=== PATIENT | male | born 1950 | race Caucasian/White ===

== ENCOUNTER → 2016-05-07 | Emergency (ER) | payer OTHER ==
[~2016-05-07] VITALS: Ht 175.3 cm; Wt 94.2 kg
[~2016-05-07] MED LIST: ATOR40TA PO; CIAL20TA PO; CLOPIDOGREL 300 MG TAB (PLAVIX) As Ordered ONE; CLOPIDOGREL 300 MG TAB (PLAVIX) ONE; CLOPIDOGREL 300 MG TAB (PLAVIX) PO ONE; FERR325T PO; HEPARIN 25,000 UNITS/250 ML D5W BAG (100 UNITS/ML) ONE; HEPARIN DRIP 25,000 UNITS in APPROPRIATE DILUENT 1 EA IV SCH; HEPARIN SOD (PORCINE) 5000 UNITS/ML VIAL IV ONE; HEPARIN SOD (PORCINE) 5000 UNITS/ML VIAL ONE; LEVO75TA4 PO; METF500T PO; MORPHINE 2 MG/ML 1ML SYRINGE IV ONE; OMEP40CA2 PO; TENECTEPLASE 50 MG KIT (TNKase)(J3101) IV ONE; TENECTEPLASE 50 MG KIT (TNKase)(J3101) ONE
[2016-05-07 21:21] LABS: BASO # 0.1 K/mm3 (0.0-0.2); BASO % 0.4 % (0.0-1.0); EOS # 0.1 K/mm3 (0.0-0.50); EOS % 0.6 % (0.0-3.0); LARGE UNSTAINED CELL # 0.3 K/mm3 (0.0-0.4); LYMPH # 3.1 K/mm3 (1.5-4.5); LYMPH % 21.5 % (24.0-44.0); MEAN CORPUSCULAR HEMOGLOBIN 31.2 pg (27.0-33.0); MEAN CORPUSCULAR HGB CONC 34.1 g/dl (32.0-36.5); MEAN CORPUSCULAR VOLUME 91.6 fl (80.0-96.0); MONO % 7.8 % (0.0-5.0); NEUTROPHILS # 8.9 K/mm3 (1.8-7.7); NEUTROPHILS % 67.6 % (36.0-66.0); PLATELET COUNT, AUTOMATED 262 k/mm3 (150-450); RED CELL DISTRIBUTION WIDTH 14.2 % (11.5-14.5); WHITE BLOOD COUNT 13.2 K/mm3 (4.0-10.0)
[2016-05-07 21:52] VITALS: BP 153/102
[2016-05-07 21:59] LABS: ALBUMIN 3.5 GM/DL (3.2-5.2); ALBUMIN/GLOBULIN RATIO 1.13 (1.00-1.93); ALKALINE PHOSPHATASE 75 U/L (45-117); ALT/SGPT 40 U/L (12-78); ANION GAP 13 MEQ/L (8-16); AST/SGOT 20 U/L (15-37); BILIRUBIN,DIRECT 0.1 MG/DL (0.0-0.2); BILIRUBIN,TOTAL 0.5 MG/DL (0.2-1.0); BLOOD UREA NITROGEN 25 MG/DL (7-18); CARBON DIOXIDE LEVEL 23 MEQ/L (21-32); CHLORIDE LEVEL 107 MEQ/L (98-107); CREATININE FOR GFR 1.48 MG/DL (0.70-1.30); GLOMERULAR FILTRATION RATE 50.8 (>49); GLUCOSE, FASTING 147 MG/DL (80-110); POTASSIUM SERUM 3.9 MEQ/L (3.5-5.1); SODIUM LEVEL 143 MEQ/L (136-145); TOTAL PROTEIN 6.6 GM/DL (6.4-8.2)
--- NOTE | 2016-05-08 03:54 | REP ---
Clinical: Chest pain . Comparison: Report dated 12/18/2010 . Findings: The mediastinum and cardiac silhouette are stable and within normal limits for portable technique. The lung [place] are clear without acute consolidation, effusion, or pneumothorax. Skeletal structures are intact. Impression: Normal portable chest x-ray Signed by Angel Luis Garcia MD 05/08/2016 03:46 A
--- NOTE | 2016-05-08 20:24 | ECGEPIP ---
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
== END | disposition home or self-care (01) ==
LOC: EDUNIT# 20:35 → EDBD 21:03 → M ED 21:53
DX: I21.19 ST elevation (STEMI) myocardial infarction involving other coronary artery of inferior wall (principal); R00.1 Bradycardia, unspecified; R55 Syncope and collapse; I51.7 Cardiomegaly; I10 Essential (primary) hypertension; E78.5 Hyperlipidemia, unspecified; K21.9 Gastro-esophageal reflux disease without esophagitis; R73.03 Prediabetes; E03.9 Hypothyroidism, unspecified; Z79.899 Other long term (current) drug therapy; Z79.84 Long term (current) use of oral hypoglycemic drugs
CPT/HCPCS: 71010; 80048; 80076; 82550; 82553; 85025; 85730; 93005; 93041; 94760; 96374; 96375; 99285; J3101

== ENCOUNTER 2016-05-30 10:37 | Observation (INO) | payer OTHER ==
[~2016-05-30] VITALS: Ht 175.3 cm; Wt 87.3 kg
[~2016-05-30 10:37] MED LIST changes: -CLOPIDOGREL 300 MG TAB (PLAVIX) As Ordered ONE; -CLOPIDOGREL 300 MG TAB (PLAVIX) ONE; -CLOPIDOGREL 300 MG TAB (PLAVIX) PO ONE; -HEPARIN 25,000 UNITS/250 ML D5W BAG (100 UNITS/ML) ONE; -HEPARIN DRIP 25,000 UNITS in APPROPRIATE DILUENT 1 EA IV SCH; -HEPARIN SOD (PORCINE) 5000 UNITS/ML VIAL IV ONE; -HEPARIN SOD (PORCINE) 5000 UNITS/ML VIAL ONE; -MORPHINE 2 MG/ML 1ML SYRINGE IV ONE; -TENECTEPLASE 50 MG KIT (TNKase)(J3101) IV ONE; -TENECTEPLASE 50 MG KIT (TNKase)(J3101) ONE; +hydrALAZINE INJ 20 MG/ML VIAL IV SCH
[2016-05-30] MEDS ORDERED: CLOP75TA2 PO (10:50)
[2016-05-30] MEDS ORDERED: ASPI81TA85 PO (10:50)
[2016-05-30] MEDS ORDERED: METO12TA PO (10:50)
[2016-05-30] MEDS ORDERED: VITA500C24 PO (10:50)
[2016-05-30] MEDS ORDERED: NITR0.4S14 SL ×2 (10:50→14:57)
[2016-05-30] MEDS ORDERED: METOPROLOL TART 50 MG TAB PO ONE (11:45)
[2016-05-30] MEDS ORDERED: MECLIZINE 25 MG TABLET PO ONE (11:45)
[2016-05-30 11:49] LABS: BASO % 0.3 % (0.0-1.0); EOS # 0.1 K/mm3 (0.0-0.50); EOS % 0.7 % (0.0-3.0); LARGE UNSTAINED CELL # 0.2 K/mm3 (0.0-0.4); LARGE UNSTAINED CELL % 1.6 % (0.0-4.0); LYMPH % 16.8 % (24.0-44.0); MEAN CORPUSCULAR HEMOGLOBIN 30.6 pg (27.0-33.0); MEAN CORPUSCULAR HGB CONC 33.1 g/dl (32.0-36.5); MEAN CORPUSCULAR VOLUME 92.4 fl (80.0-96.0); MONO % 9.5 % (0.0-5.0); NEUTROPHILS # 7.8 K/mm3 (1.8-7.7); PLATELET COUNT, AUTOMATED 188 k/mm3 (150-450); RED CELL DISTRIBUTION WIDTH 14.2 % (11.5-14.5)
[2016-05-30] MEDS: METOPROLOL 5 MG/5 ML VIAL IV SCH ×2 (11:50→12:15)
[2016-05-30 12:01] LABS: ALBUMIN 3.9 GM/DL (3.2-5.2); ALBUMIN/GLOBULIN RATIO 1.08 (1.00-1.93); ALKALINE PHOSPHATASE 80 U/L (45-117); ALT/SGPT 49 U/L (12-78); ANION GAP 9 MEQ/L (8-16); AST/SGOT 28 U/L (15-37); BILIRUBIN,DIRECT < 0.1 MG/DL (0.0-0.2); BILIRUBIN,TOTAL 0.7 MG/DL (0.2-1.0); BLOOD UREA NITROGEN 22 MG/DL (7-18); CALCIUM LEVEL 9.5 MG/DL (8.8-10.2); CARBON DIOXIDE LEVEL 26 MEQ/L (21-32); CHLORIDE LEVEL 105 MEQ/L (98-107); CREATININE FOR GFR 1.38 MG/DL (0.70-1.30); FREE T4 0.94 NG/DL (0.76-1.46); GLOMERULAR FILTRATION RATE 55.1 (>49); GLUCOSE, FASTING 97 MG/DL (80-110); POTASSIUM SERUM 3.9 MEQ/L (3.5-5.1); SODIUM LEVEL 140 MEQ/L (136-145); TOTAL PROTEIN 7.5 GM/DL (6.4-8.2)
--- NOTE | 2016-05-30 12:06 | REP ---
Clinical: Chest pain . Comparison: 05/07/2016 . Findings: The mediastinum and cardiac silhouette are stable and within normal limits for portable technique. The lung calh[place] are clear without acute consolidation, effusion, or pneumothorax. Skeletal structures are intact. Impression: Normal portable chest x-ray Signed by Angel Luis Garcia MD 05/30/2016 11:57 A
--- NOTE | 2016-05-30 12:10 | REP ---
CT HEAD WITHOUT CONTRAST: HISTORY: Dizziness. Areas of decreased attenuation are present in the periventricular white matter. This represents small vessel ischemic disease. There is no intraparenchymal hemorrhage, mass or midline shift. The ventricular system and cortical sulci are dilated consistent with minimal volume loss. There is no extracerebral collection. The visualized sinuses are clear. IMPRESSION: 1. Small vessel ischemic disease. 2. Minimal volume loss. Signed by Vini Gonzales MD 05/30/2016 12:11 P
[2016-05-30] MEDS ORDERED: LISINOPRIL 10 MG TAB PO ONE (13:30)
[2016-05-30] MEDS ORDERED: OMEP20CA3 PO (14:57)
[2016-05-30] MEDS ORDERED: SYNT50TA PO (14:57)
[2016-05-30] MEDS ORDERED: REFR0.5D8 OU (14:58)
[2016-05-30] MEDS ORDERED: GLUCAGON FOR INJ 1 MG VIAL (J1610) SC PRN (16:00)
[2016-05-30] MEDS ORDERED: OMEPRAZOLE 20 MG CAP PO PRN (16:00)
[2016-05-30] MEDS ORDERED: GLUCOSE 4 GM CHEW TABLET PO PRN (16:00)
[2016-05-30] MEDS ORDERED: DEXTROSE 50% 50 ML SYRINGE IV PRN (16:00)
[2016-05-30] MEDS ORDERED: NITROGLYCERIN 0.4 MG SUBL TABLET SL PRN (16:00)
[2016-05-30] MEDS ORDERED: LABETALOL 100 MG TAB PO SCH (16:00)
[2016-05-30] MEDS ORDERED: hydrALAZINE INJ 20 MG/ML VIAL IV ONE (16:15)
[2016-05-30 16:19] LABS: CHOLESTEROL LEVEL 213 MG/DL (<200); TRIGLYCERIDES LEVEL 457 MG/DL (<150)
[2016-05-30] MEDS ORDERED: hydrALAZINE INJ 20 MG/ML VIAL As Ordered ONE (16:25)
--- NOTE | 2016-05-30 16:43 | ECGEPIP ---
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
[2016-05-30 16:45] VITALS: BP 142/80
--- NOTE | 2016-05-30 16:58 | HPEPDOC ---
General Date of Admission May 30, 2016 at 15:35 Primary Care Physician: GUNNAR JOHNSON M.D. Attending Physician: JULIANNA BONILLA DO Chief Complaint The patient is a 66-year-old male admitted with a reason for visit of Hypertensive Urgency. Source: Patient, RN notes reviewed, Old records Exam Limitations: No limitations Timing/Duration: Week(s) (3 weeks) History of Present Illness Mr. Skelton is a 66-year-old male who presents to [facility] emergency department with dizziness. Patient is accompanied by his . Past medical history significant for inferior myocardial infarction with cardiac stenting 3, hypertension, coronary artery disease, dyslipidemia, diabetes mellitus, hypothyroidism, gastroesophageal reflux disease, iron deficiency, erectile dysfunction, diverticulosis, nonbleeding hemorrhoids, history of basal cell carcinoma, history of squamous cell carcinoma. Patient states that he has had 3 separate episodes of dizziness to the point where he almost passing out. He states that each episode lasts about 15 minutes. The first episode started 5 days after his cardiac stenting. He reports a "fluttering" in the center of his chest without radiation and then develops a feeling of blood draining from his head down. He states that these episodes have occurred while driving and sitting at his desk at work. He states that taking some deep breaths and "flexing his chest muscles" abates symptoms. Reports that the symptoms occur almost spontaneously and then resolve gradually. Next episode was approximately a week later with similar presentation as the first episode. The third episode occurred today while he was driving, but the reason he presented to the hospital was that the symptoms ( fluttering in his chest and feeling of blood draining from his head) persisted. Patient also reports that in between these episodes he would have daily, shorter episodes that would only last approximately 15 seconds and that had a similar presentation as the 3 episodes, but were less "severe". Patient denies symptoms prior to his myocardial infarction. Patient has his first appointment with Dr. [place], cardiology, on Thursday. He was contemplating waiting until Thursday before presenting to the hospital. Patient describes a very brief change in vision when the episodes occur as if there is something crossing his vision, but then it dissipates. Besides review of systems listed above patient denies all other review of systems. Hospitalist service was consulted and patient was subsequently admitted for further medical management. Home Medications Scheduled Ascorbic Acid (Vitamin C) 500 Mg Cap 500 MG PO DAILY (Reported) Aspirin (Aspir-81) 81 Mg Tab 81 MG PO DAILY (Reported) Atorvastatin Calcium (Atorvastatin Calcium) 40 Mg Tab 40 MG PO DAILY (Reported ) Clopidogrel Bisulfate (Clopidogrel) 75 Mg Tab 75 MG PO DAILY (Reported) Ferrous Sulfate (Ferrous Sulfate) 325 Mg Tab 325 MG PO QHS (Reported) Levothyroxine Sodium (Synthroid) 50 Mcg Tab 50 MCG PO QHS (Reported) Lisinopril (Lisinopril) 10 Mg Tab 10 MG PO DAILY Metformin Hydrochloride (Metformin HCl) 500 Mg Tab 1,000 MG PO BID (Reported) Metoprolol Tartrate (Metoprolol Tartrate) 25 Mg Tab 25 MG PO BID (Reported) Omeprazole (Omeprazole) 20 Mg Cap 20 MG PO DAILY (Reported) Scheduled PRN Carboxymethylcellulose Sodium (Refresh Tears) 0.5 % Aaron 1 DROP OU PRN PRN PRN DRY EYES (Reported) Nitroglycerin (Nitroglycerin) 0.4 Mg Sub 0.4 MG SL NITRO PRN PRN CHEST PAIN ( Reported) Tadalafil (Cialis) 20 Mg Tab 20 MG PO PRN PRN PRN ERECTILE DYSFUNCTION (Reported ) Allergies Coded Allergies: No Known Allergies (Unverified , 05/07/16) Past Medical History Medical History 1. Myocardial infarction status postcardiac stenting 3 2. Hypertension 3. Coronary artery disease 4. Dyslipidemia 5. Hypothyroidism 6. Diabetes mellitus 7. Gastroesophageal reflux disease 8. Iron deficiency 9. Erectile dysfunction 10. History of diverticulosis 11. History of nonbleeding internal hemorrhoids 12. History of basal cell carcinoma 13. History of squamous cell carcinoma Surgical History 1. Cardiac stenting 3 2. Bilateral rotator cuff repairs 3. Shoulder bone spur removals 4. 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 Dyspnea Gastrointestinal: Denies: Abdominal Pain, Constipation, Diarrhea, Hematochezia , Melena, Nausea, Vomiting Genitourinary: Denies: Dysuria, Frequency, Hematuria, Incontinence Hematologic: Denies: Bruising, Petecchia, Purpura Musculoskeletal: Denies: Back Pain, Joint Pain, Muscle Pain, Neck Pain Neurological: Denies: Numbness, Weakness Physical Examination General Exam: Positive: Alert, Cooperative, No Acute Distress Eye Exam: Positive: Conjunctiva & lids normal, EOMI, Other Eye Symptoms (wears spectacles), PERRLA, Negative: Sclera icteric ENT Exam: Positive: Atraumatic, Mucous membr. moist/pink, Nares Patent, Pharynx Normal, Tongue Midline, Negative: Pharyngeal Edema Neck Exam: Positive: JVD (3+), Supple, Negative: Lymphadenopathy, thyromegaly Chest Exam: Positive: Clear to auscultation, Normal air movement, Negative: Rales, Rhonchi, Wheezing Heart Exam: Positive: Normal S1, Normal S2, Rate Normal, Regular Rhythm Telemetry: Positive: No significant arrhythmia, Other Telemetry: (EKG shows acute changes in the inferior leads secondary to patient's recent inferior myocardial infarction) Abdomen Exam: Positive: Normal bowel sounds, Soft, Negative: Hepatospenomegaly, Hernia, Mass, Tenderness Extremity Exam: Positive: Normal pulses, Negative: Clubbing, Cyanosis, Edema, Swelling, Tenderness Skin Exam: Positive: Nl turgor and temperature, Negative: Lesion, Rash Neuro Exam: Positive: Cranial Nerves 3-12 NL, Normal Speech, Sensation Intact, Strength at 5/5 X4 ext Psych Exam: Positive: Oriented x [address] head without contrast IMPRESSION: 1. Small vessel ischemic disease. 2. Minimal volume loss. Chest x-ray IMPRESSION: Normal portable chest x-ray Vital Signs T 97.3 HR 73 RR 18 BP 142/89 O2 95% RA Height (in): 69 Weight (kg): 89.358 BMI (kg): 29.1 Laboratory Data Labs 24H Laboratory Tests 2 05/30/16 10:49: Aspartate Amino Transf (AST/SGOT) 28, Alanine Aminotransferase (ALT/SGPT) 49, Alkaline Phosphatase 80, Total Bilirubin 0.7, Direct Bilirubin < 0.1, Albumin 3.9, Albumin/Globulin Ratio 1.08, Anion Gap 9, White Blood Count 11.0H, Red Blood Count 5.26, Hemoglobin 16.1, Hematocrit 48.6, Mean Corpuscular Volume 92.4 , Mean Corpuscular Hemoglobin 30.6, Mean Corpuscular Hemoglobin Concent 33.1, Red Cell Distribution Width 14.2, Platelet Count 188, Neutrophils (%) (Auto) 71.0H, Lymphocytes (%) (Auto) 16.8L, Monocytes (%) (Auto) 9.5H, Eosinophils (%) (Auto) 0.7, Basophils (%) (Auto) 0.3, Neutrophils # (Auto) 7.8H, Lymphocytes # ( Auto) 2.0, Monocytes # (Auto) 1.0H, Eosinophils # (Auto) 0.1, Basophils # (Auto ) 0.0, Calcium Level 9.5, Cholesterol Level 213H, Cholesterol/HDL Ratio 3.803, Creatine Kinase MB 2.3, Creatine Kinase MB Relative Index 2.73, Free Thyroxine 0.94, Glomerular Filtration Rate 55.1, HDL Cholesterol 56, LDL Cholesterol , Large Unclassified Cells # 0.2, Large Unclassified Cells % 1.6, Non-HDL Cholesterol (LDL + VLDL) 157, Thyroid Stimulating Hormone (TSH) 4.270H, Total Creatine Kinase 84, Total Protein 7.5, Triglycerides Level 457H, Troponin I 0.03 CBC/BMP Laboratory Tests 05/30/16 10:49 Red Blood Count 5.26, Mean Corpuscular Volume 92.4, Mean Corpuscular Hemoglobin 30.6, Mean Corpuscular Hemoglobin Concent 33.1, Red Cell Distribution Width 14.2 , Neutrophils (%) (Auto) 71.0 H, Lymphocytes (%) (Auto) 16.8 L, Monocytes (%) ( Auto) 9.5 H, Eosinophils (%) (Auto) 0.7, Basophils (%) (Auto) 0.3, Neutrophils # (Auto) 7.8 H, Lymphocytes # (Auto) 2.0, Monocytes # (Auto) 1.0 H, Eosinophils # (Auto) 0.1, Basophils # (Auto) 0.0 RAD Interpretation STUDY: CXR Rad Actions: Report Reviewed Assessment/Plan This is a 66-year-old male with a past medical history significant for recent inferior myocardial infarction with cardiac stenting 3, hypertension , coronary artery disease, dyslipidemia, hypothyroidism, diabetes mellitus, iron deficiency, gastroesophageal reflux disease, erectile dysfunction, history of diverticulosis, history of nonbleeding internal hemorrhoids, history of basal carcinoma, history of squamous cell carcinoma who presented with dizziness. Patient was found to have hypertensive urgency. Problems (1) Hypertensive urgency Status: Acute Problem Text: Blood pressure at time of presentation was 184/106 At time of evaluation was 142/89 Had received lisinopril 10 mg, Lopressor 50 mg, Lopressor 5 mg IV 2 of 3 doses in the emergency department Evaluated for causes of hypertensive urgency - Renal artery stenosis: Obtaining renal ultrasound - Pheochromocytoma: Obtaining 24-hour urine catecholamines and metanephrines Prescribing hydralazine with hold parameters (2) Acute kidney failure Status: Acute Problem Text: BUN and creatinine are 22 and 1.3, respectively Likely secondary to hypertensive urgency Monitor BMP daily (3) Elevated white blood cell count Status: Acute Problem Text: WBC 11 Likely reactive process Continue to monitor with daily CBC (4) Hypothyroidism Status: Chronic Problem Text: Continue patient on levothyroxine TSH 4.270 Free T4 0.94 Asymptomatic at this time (5) Iron deficiency Status: Chronic Problem Text: H&H 16.1 and 48.6, respectively Continue patient on ferrous sulfate 325 mg daily (6) Gastroesophageal reflux disease Status: Chronic Problem Text: Continue patient on omeprazole (7) Diabetes mellitus Status: Chronic Problem Text: Patient takes metformin as an outpatient Provide sliding scale insulin Fingersticks before meals and at bedtime Hypoglycemic protocol Plan / VTE VTE Prophylaxis Ordered?: Yes (TEDs and sequentials) Plan Plan Hypertensive urgency Patient's blood pressure at time of presentation was 184/106. At time of evaluation patient's blood pressure was 142/89. Patient had received one-time by mouth dose of lisinopril 10 mg, one-time dose by mouth metoprolol 50 mg, and 2 of 3 doses of metoprolol 5 mg IV. Patient's blood pressure did respond appropriately, however blood pressure did continue to rise. Have added hydralazine with hold parameters. Admit patient to the progressive care unit for telemetry monitoring secondary to patient's recent inferior myocardial infarction. We'll trend the patient's cardiac markers. We'll obtain 24-hour urine catecholamine and metanephrines to rule out pheochromocytoma. We'll obtain a renal ultrasound to rule out renal artery stenosis. We will obtain an MRI of the brain, MRA of the brain, and MRA of the carotids to assess for aneurysm. CT of the head without contrast has been negative. Chest x-ray was negative. Continue with patient's home medications status-post cardiac stenting , including clopidogrel, lipitor, metoprolol, and ASA. Acute renal failure Patient does not report any kidney disease history, besides family history. Patient's BUN/creatinine are 22 and 1.38, respectively. Likely related to hypertensive urgency. We'll continue to monitor with daily BMP. Hypothyroidism Patient will continue on levothyroxine. Patient's TSH is 4.270 with a free T4 of 0.94. Could consider evaluating on an outpatient basis. Elevated white blood count Patient's white blood count was 11. This is only mildly elevated. Likely reactive process. We'll continue to monitor with CBC. Diabetes mellitus Patient's blood glucose was 97. Patient takes metformin as an outpatient. We'll continue sliding scale insulin here with fingersticks before meals and at bedtime. Hypoglycemic protocol. Gastroesophageal reflux disease Continue with patient's omeprazole. DVT prophylaxis: TEDs and sequentials Diet: 2 g sodium Disposition Admit to the progressive care unit Anticipated hospitalization: 2 nights Attending Note: I have independently examined this patient and all aspects of the exam and treatment decisions have been discussed with the resident. A member of the hospitalist staff will continue to follow this patient through discharge. Diet: Continue Current (2 g sodium) Activity: Bedrest (with commode privileges) Diagnostics: Check Labs, Repeat Labs in AM, MRI (MRI brain; MRA brain; MRA carotids) Anticipated Discharge: Home SAMANTHA ORTIZ May 30, 2016 16:58 JULIANNA BONILLA DO Jun 10, 2016 15:48
[2016-05-30] MEDS: HumaLOG INSULIN (NovoLOG) PER UNIT SC SCH (17:15)
[2016-05-30] MEDS: ASPIRIN 81 MG ENTERIC TAB PO SCH (17:20)
[2016-05-30] MEDS: CLOPIDOGREL 75 MG TAB PO SCH (17:20)
[2016-05-30] MEDS: ATORVASTATIN 20 MG TAB PO SCH (17:20)
[2016-05-30] MEDS: ASCORBIC ACID 500 MG TAB PO SCH (17:21)
--- NOTE | 2016-05-30 19:20 | REPUSA ---
MRI of the brain Clinical history: dizziness, hypertensive emergency. Technique: Multiecho multiplanar MRI images of the brain were obtained without administration of cont rast. Diffusion weighted images with ADC mapping was also obtained. Findings: The ventricles and sulci are symmetric bilaterally. The brain parenchyma demonstrates uniform and nor mal signal on all sequences. There is no midline shift, mass effect, or extra-axial fluid collection. The midline intracranial structures do not demonstrate any gross abnormalities. The cervical cranial junction is intact. The orbits are unremarkable. The visualized paranasal sinuses and mastoid air ce lls are clear. The osseous structures and superficial soft tissues are unremarkable. The vascular str uctures demonstrate appropriate flow voids. Impression: Normal MRI of the Brain.
--- NOTE | 2016-05-30 19:20 | REPUSA ---
MRA of the Carotid Arteries Clinical history: Dizziness. Technique: [id number] MRA images of the neck were obtained without administration of contrast. 3- D MIP images were also obtained. Findings: The vascular structures extending from the arches aorta through the carotid and vertebrobas ilar arterial systems, into the proximal [place], demonstrate normal caliber and contour. Th ere is no evidence of aneurysm, stenosis, or thrombosis. Impression: Unremarkable MRA examination of the carotid and vertebrobasilar systems.
--- NOTE | 2016-05-30 19:20 | REPUSA ---
MRA of the brain Clinical history: dizziness, hypertensive emergency. Technique: [id number] MRA images of the brain were obtained without administration of contrast. 3 -D MIP images were also obtained. Findings: The vascular structures extending from the distal carotid and vertebrobasilar arterial syst ems, through the [place], demonstrate normal caliber and contour. There is no evidence of an eurysm, stenosis, or thrombosis. Impression: Unremarkable MRA examination of the brain.
[2016-05-30 19:55] VITALS: BP 140/78
[2016-05-30] MEDS ORDERED: LEVOTHYROXINE 0.05 MG TAB (50 MCG) PO SCH (21:00)
[2016-05-30] MEDS ORDERED: HumaLOG INSULIN (NovoLOG) PER UNIT SC SCH (21:00)
[2016-05-30] MEDS ORDERED: FERROUS SULFATE 325MG TAB PO SCH (21:00)
[2016-05-30] MEDS ORDERED: SLF 3 ML SYR IV PRN (21:45)
[2016-05-30] MEDS: METOPROLOL TART 25 MG TABLET PO SCH (22:12)
[2016-05-30] MEDS: SLF 3 ML SYR IV SCH (22:13)
[2016-05-30 23:12] VITALS: BP 120/70
[2016-05-31] MEDS: hydrALAZINE INJ 20 MG/ML VIAL IV SCH ×2 (00:37→07:36)
[2016-05-31 02:30] LABS: MAGNESIUM LEVEL 2.2 MG/DL (1.8-2.4)
[2016-05-31 03:03] LABS: MEAN CORPUSCULAR HEMOGLOBIN 30.4 pg (27.0-33.0); MEAN CORPUSCULAR HGB CONC 32.9 g/dl (32.0-36.5); MEAN CORPUSCULAR VOLUME 92.6 fl (80.0-96.0); RED CELL DISTRIBUTION WIDTH 14.3 % (11.5-14.5); WHITE BLOOD COUNT 8.8 K/mm3 (4.0-10.0)
[2016-05-31 03:04] LABS: ERYTHROCYTE SEDIMENTATION RATE 2 mm/hr (0-20)
[2016-05-31 03:27] LABS: ANION GAP 9 MEQ/L (8-16); BLOOD UREA NITROGEN 18 MG/DL (7-18); CALCIUM LEVEL 8.6 MG/DL (8.8-10.2); CARBON DIOXIDE LEVEL 26 MEQ/L (21-32); CHLORIDE LEVEL 107 MEQ/L (98-107); CREATININE FOR GFR 1.12 MG/DL (0.70-1.30); GLOMERULAR FILTRATION RATE > 60.0 (>49); GLUCOSE, FASTING 145 MG/DL (80-110); POTASSIUM SERUM 3.9 MEQ/L (3.5-5.1); SODIUM LEVEL 142 MEQ/L (136-145)
[2016-05-31 04:45] VITALS: BP 145/93
[2016-05-31 04:55] LABS: MAGNESIUM LEVEL 2.4 MG/DL (1.8-2.4)
[2016-05-31] MEDS: SLF 3 ML SYR IV SCH ×2 (06:04→13:53)
[2016-05-31] MEDS: HumaLOG INSULIN (NovoLOG) PER UNIT SC SCH ×2 (07:29→12:00)
[2016-05-31 08:00] VITALS: BP 138/90
[2016-05-31] MEDS ORDERED: LISINOPRIL 10 MG TAB PO SCH (09:00)
[2016-05-31 09:35] VITALS: BP 138/90
[2016-05-31] MEDS: ASPIRIN 81 MG ENTERIC TAB PO SCH (09:35)
[2016-05-31] MEDS: CLOPIDOGREL 75 MG TAB PO SCH (09:35)
[2016-05-31] MEDS: ATORVASTATIN 20 MG TAB PO SCH (09:35)
[2016-05-31] MEDS: ASCORBIC ACID 500 MG TAB PO SCH (09:35)
[2016-05-31] MEDS: METOPROLOL TART 25 MG TABLET PO SCH (09:35)
--- NOTE | 2016-05-31 10:37 | ECHO ---
DATE OF PROCEDURE: 05/30/2016 REFERRING PHYSICIAN: Leatha Hanley MD PATIENT LOCATION: U REASON FOR ECHOCARDIOGRAM: Abnormal EKG. Recent myocardial infarction. 2D MEASUREMENTS: IVS: 1.3 cm LV: 4.3 cm LVPW: 1.4 cm LA: 4.1 cm Aorta: 3.3 cm IVC: 1.7 cm RV: 2.7 cm Ascending aorta: 3.3 cm DOPPLER MEASUREMENTS: Peak velocity across the aortic valve: 1.2 m/s Mitral E: 0.77, Mitral A: 0.94, with a ratio of 0.78 2D COMMENTS: 1. Normal left ventricular size with mildly increased left ventricular wall thickness. Left ventricular systolic function is normal, estimated at 60% to 65%. 2. Mildly dilated left atrium. Normal right atrium and right ventricle. 3. The atrial septum appeared to be normal without evidence of defect or shunt. 4. Normal aortic root. 5. Trace pericardial effusion was noted only at the base of the left ventricle posteriorly. 6. Minimally calcified aortic valve with normal leaflet excursion. Normal mitral valve, tricuspid valve and pulmonic valve. The proximal pulmonary artery branches appeared to be normal. 7. The inferior vena cava was normal in size, central venous pressure is most likely normal. DOPPLER: Only trace pulmonic regurgitation detected. IMPRESSION: 1. Normal global left ventricular systolic function with mild concentric left ventricular hypertrophy. There are features of left ventricular diastolic dysfunction, grade 1. 2. Isolated mildly dilated left atrium, but no significant mitral regurgitation. Probably related to underlying left ventricular diastolic dysfunction. 3. Trace pericardial effusion noted posteriorly at the base of the left ventricle.
[2016-05-31 12:00] VITALS: BP 139/86
[2016-05-31] MEDS ORDERED: LISI10TA4 PO (13:15)
--- NOTE | 2016-05-31 15:48 | REP ---
Clinical: Hypertension. Technique: Sandhu scale and color Doppler evaluation of the kidneys and renal vasculature using curved array transducer. Findings: The kidneys are essentially normal in contour size, echogenicity and reniform shape without hydronephrosis, cystic or renal mass lesion. Right kidney measures 12.6 x 5.8 x 5.4 cm with 9 mm mid pole and 5 mm upper pole calculi. Left kidney measures 11.4 x 5.0 x 5.0 cm with 8 mm and 6 mm lower pole calculi. Bladder is incompletely distended and grossly normal by current evaluation. Prostate gland is heterogeneous and enlarged measuring 5.0 x 5.7 x 4.9 cm (92 ml). Color Doppler evaluation of the renal vasculature demonstrates normal arterial wave patterns, velocities, renal aortic ratios, resistive indices and the acceleration time. No sonographic evidence for renal arterial stenosis noted. Renal vein is patent. Right Kidney: Peak arterial velocity: 109.4 cm/sec . Renal aortic ratio: 1.5 . Resistive indices: 0.56 - 0.62 . Acceleration times: 0.050 - 0.061 . Left kidney: Peak arterial velocity: 84.8 . Renal aortic ratio: 1.2 . Resistive indices: 0.49 - 0.58 . Acceleration times: 0.034 - 0.044 . Impression: 1. Bilateral kidneys demonstrate nonobstructing renal calculi without hydronephrosis. 2. Doppler interrogation without sonographic evidence for renal arterial stenosis. Signed by Angel Luis Garcia MD 05/31/2016 03:40 P
--- NOTE | 2016-05-31 17:00 | DS.PDOC ---
Discharge Summary General Date of Admission May 30, 2016 at 15:35 Date of Discharge May 31, 2016 at 14:14 Primary Care Physician: GUNNAR JOHNSON M.D. Attending Physician: KG MOSELEY MD Discharge Summary PROCEDURES PERFORMED DURING STAY: None ADMITTING DIAGNOSES: 1. Hypertensive urgency 2. Acute kidney failure 3. Elevated white count 4. Iron deficiency 5. Hypothyroidism 6. Gastroesophageal reflux disease 7. Diabetes mellitus DISCHARGE DIAGNOSES: 1. Hypertensive urgency 2. Intermittent lightheadedness 3. Acute kidney failure 4. Elevated white blood cell count 5. Iron deficiency 6. Hypothyroidism 7. Diabetes mellitus 8. Gastroesophageal reflux disease COMPLICATIONS/CHIEF COMPLAINT: Hypertensive Urgency. HISTORY OF PRESENT ILLNESS: Mr. Skelton is a 66-year-old male who presents to [facility] emergency department with dizziness. Patient is accompanied by his . Past medical history significant for inferior myocardial infarction with cardiac stenting 3, hypertension, coronary artery disease, dyslipidemia, diabetes mellitus, hypothyroidism, gastroesophageal reflux disease, iron deficiency, erectile dysfunction, diverticulosis, nonbleeding hemorrhoids, history of basal cell carcinoma, history of squamous cell carcinoma. Patient states that he has had 3 defined episodes of dizziness to the point where he almost passing out. He states that each episode lasts about 15 minutes. The first episode started 5 days after his cardiac stenting. He reports a "fluttering" in the center of his chest without radiation and then develops a feeling of blood draining from his head down. He states that these episodes have occurred while driving and sitting at his desk at work. He states that taking some deep breaths and "flexing his chest muscles" abates symptoms. Reports that the symptoms occur almost spontaneously and then resolve gradually. Next episode was approximately a week later with similar presentation as the first episode. The third episode occurred today while he was driving, but the reason he presented to the hospital was that the symptoms ( fluttering in his chest and feeling of blood draining from his head) persisted. Patient also reports that in between these episodes he would have daily, shorter episodes that would only last approximately 15 seconds and that had a similar presentation as the 3 episodes, but were less "severe". Patient denies symptoms prior to his myocardial infarction. Patient has his first appointment with Dr. Hager, cardiology, on Thursday. He was contemplating waiting until Thursday before presenting to the hospital. Patient describes a very brief change in vision when the episodes occur as if there is something crossing his vision, but then it dissipates. Besides review of systems listed above patient denies all other review of systems. Hospitalist service was consulted and patient was subsequently admitted for further medical management. HOSPITAL COURSE: Admitted the patient to the progressive care unit for continuous telemetry monitoring. Obtained 24-hour cardiac markers which were negative. Obtained an echocardiogram which revealed grade 1 diastolic heart failure. All other imaging was negative. Control patient's hypertensive urgency with metoprolol, hydralazine intravenously, and lisinopril. Provided prescription for lisinopril 10 mg time of discharge. Elevated white blood count likely reactive in nature. Was normal at time of discharge. No acute events overnight. Patient stable time of discharge. Patient is prescheduled appointment with cardiology on Thursday. DISCHARGE MEDICATIONS: Please see below. ALLERGIES: Please see below. PHYSICAL EXAMINATION ON DISCHARGE: VITAL SIGNS: Please see below. GENERAL: Pleasant male sitting comfortably in hospital bed upon evaluation, appears stated age, in no apparent distress HEENT: Atraumatic, normocephalic, PERRL, EOMI, oral mucosa appears pink moist, nasal septum appears midline, nares are patent, wears spectacles NECK: Soft, supple, trachea midline, no lymphadenopathy appreciated CARDIOVASCULAR EXAMINATION: Regular rate and rhythm, normal S1 and S2, no murmur , rub, click RESPIRATORY EXAMINATION: Clear to auscultation bilaterally, adequate inspiratory and expiratory airway excursion, no wheeze, rhonchi, crackles ABDOMINAL EXAMINATION: Flat, soft, nondistended, nontender, bowel sounds appreciated EXTREMITIES: Radial pulses appreciated bilaterally, equal comes medical, +2/4; peripheral pulses appreciated bilaterally in lower extremities, equal, symmetrical, +2/4, no edema appreciated SKIN: No lesions or rashes appreciated NEUROLOGICAL EXAMINATION: Cranial nerves II through XII appear grossly intact PSYCHIATRIC EXAMINATION: Mood and affect appear appropriate LABORATORY DATA: Please see below. IMAGING: CT head without contrast IMPRESSION: 1. Small vessel ischemic disease. 2. Minimal volume loss. Portable chest x-ray IMPRESSION: Normal portable chest x-ray MRA carotids without contrast IMPRESSION: Unremarkable MRA examination of the carotid and vertebrobasilar systems. MRA brain without contrast IMPRESSION: Unremarkable MRA examination of the brain. MRI brain without contrast IMPRESSION: Normal MRI of the Brain. Renal ultrasound IMPRESSION: 1. Bilateral kidneys demonstrate nonobstructing renal calculi without hydronephrosis. 2. Doppler interrogation without sonographic evidence for renal arterial stenosis. Echocardiogram IMPRESSION: 1. Normal global left ventricular systolic function with mild concentric left ventricular hypertrophy. There are features of left ventricular diastolic dysfunction, grade 1. 2. Isolated mildly dilated left atrium, but no significant mitral regurgitation. Probably related to underlying left ventricular diastolic dysfunction. 3. Trace pericardial effusion noted posteriorly at the base of the left ventricle. PROGNOSIS: Stable ACTIVITY: As tolerated DIET: 2 g sodium DISCHARGE PLAN: See discharge instructions DISPOSITION: 01 Home, Self-Care. DISCHARGE INSTRUCTIONS: 1. Appointment with cardiology on prescheduled appointment date and time 2. Call Dr. Johnson's office on Thursday to schedule appointment for one week ITEMS TO FOLLOWUP ON ON OUTPATIENT: 1. Hypertensive urgency 2. Start taking lisinopril 10 mg daily 3. Elevated TSH level DISCHARGE CONDITION: Stable TIME SPENT ON DISCHARGE: Greater than 30 minutes. Vital Signs/I&Os Vital Signs Date Time Temp Pulse Resp B/P Pulse Ox O2 Delivery O2 Flow Rate FiO2 05/31/16 12:00 97.3 79 18 139/86 96 Room Air I&O- Last 24 Hours up to 6 AM 05/31/16 06:00 Intake Total 2100 ml Output Total 1950 ml Balance 150 ml Laboratory Data Labs 24H Laboratory Tests 2 05/30/16 16:46: Bedside Glucose (Misc Panel) 177H 05/30/16 19:15: Creatine Kinase MB 2.7, Creatine Kinase MB Relative Index 3.33, Total Creatine Kinase 81, Troponin I 0.03 05/30/16 21:57: Bedside Glucose (Misc Panel) 151H 05/30/16 22:16: Urine Amorphous Sediment , Urine Appearance CLEAR, Urine Color STRAW, Urine pH 7.0, Urine Specific [place] 1.005, Urine Protein NEGATIVE, Urine Glucose (UA) NEGATIVE, Urine Ketones NEGATIVE, Urine Urobilinogen 0.2, Urine Bilirubin NEGATIVE, Urine Leukocyte Esterase TRACEH, Urine Bacteria (Auto) NEGATIVE, Urine Blood NEGATIVE, Urine Calcium Carbonate Cryst(Auto) , Urine Calcium Oxalate Cryst (Auto) , Urine Calcium Phosphate Kandice (Auto) , Urine Cellular Casts , Urine Cystine Crystals , Urine Granular Casts (Auto) , Urine Hyaline Casts (Auto) 0, Urine Leucine Crystals , Urine Mucus (Auto) , Urine Nitrite NEGATIVE, Urine Oval Fat Bodies (Auto) , Urine RBC (Auto) 1, Urine Renal Epithelial Cells , Urine Sperm (Auto) , Urine Squamous Epithelial Cells 0, Urine Transitional Epithelial Cells , Urine Trichomonas (Auto) , Urine Triple Phosphate Cryst (Auto) , Urine Tyrosine Crystals , Urine Uric Acid Crystals ( Auto) , Urine WBC (Auto) 3, Urine Waxy Casts (Auto) , Urine Yeast-Like Cells ( Auto) 05/31/16 02:43: Anion Gap 9, C-Reactive Protein, Quantitative < 0.30, Blood Urea Nitrogen 18, Creatinine 1.12, Sodium Level 142, Potassium Level 3.9, Chloride Level 107, Carbon Dioxide Level 26, Calcium Level 8.6L, Total Creatine Kinase 66, Creatine Kinase MB 2.6, Creatine Kinase MB Relative Index 3.93, Erythrocyte Sedimentation Rate 3, Glomerular Filtration Rate > 60.0, Magnesium Level 2.4, Troponin I 0.03 CBC/BMP Laboratory Tests 05/31/16 02:43 Calcium Level 8.6 L, Total Creatine Kinase 66, Red Blood Count 4.97, Mean Corpuscular Volume 92.6, Mean Corpuscular Hemoglobin 30.4, Mean Corpuscular Hemoglobin Concent 32.9, Red Cell Distribution Width 14.3 FSBS Laboratory Tests Test 05/30/16 16:46 05/30/16 21:57 Range/Units Bedside Glucose (Misc Panel) 177 151 80-115 MG/DL Discharge Medications Scheduled Ascorbic Acid (Vitamin C) 500 Mg Cap 500 MG PO DAILY (Reported) Aspirin (Aspir-81) 81 Mg Tab 81 MG PO DAILY (Reported) Atorvastatin Calcium (Atorvastatin Calcium) 40 Mg Tab 40 MG PO DAILY (Reported ) Clopidogrel Bisulfate (Clopidogrel) 75 Mg Tab 75 MG PO DAILY (Reported) Ferrous Sulfate (Ferrous Sulfate) 325 Mg Tab 325 MG PO QHS (Reported) Levothyroxine Sodium (Synthroid) 50 Mcg Tab 50 MCG PO QHS (Reported) Lisinopril (Lisinopril) 10 Mg Tab 10 MG PO DAILY Metformin Hydrochloride (Metformin HCl) 500 Mg Tab 1,000 MG PO BID (Reported) Metoprolol Tartrate (Metoprolol Tartrate) 25 Mg Tab 25 MG PO BID (Reported) Omeprazole (Omeprazole) 20 Mg Cap 20 MG PO DAILY (Reported) Scheduled PRN Carboxymethylcellulose Sodium (Refresh Tears) 0.5 % Aaron 1 DROP OU PRN PRN PRN DRY EYES (Reported) Nitroglycerin (Nitroglycerin) 0.4 Mg Sub 0.4 MG SL NITRO PRN PRN CHEST PAIN ( Reported) Tadalafil (Cialis) 20 Mg Tab 20 MG PO PRN PRN PRN ERECTILE DYSFUNCTION (Reported ) Allergies Coded Allergies: No Known Allergies (Unverified , 05/07/16) GME ATTESTATION GME ATTESTATION My preceptor for this patient encounter was physically present in the building during the encounter and was fully available. As needed, all aspects of the patient interview, examination, medical decision making process, and medical care plan development were reviewed and approved by the preceptor. Preceptor is aware and concurs with the plan as stated in the body of this note and will attest to such by his/her cosignature. ATTENDING NOTE I have both independently examined this patient as well as reviewed the note. I have discussed in detail with the resident the findings and plan of treatment as documented in the residents note. I will continue to follow the patient and offer further guidance to the patients care as necessary during this hospital stay. SAMANTHA Parisi MD May 31, 2016 17:00 KG MOSELEY MD Jun 10, 2016 18:50
== END 2016-05-31 14:14 | disposition home or self-care (01) ==
LOC: EDBD 10:37 → M ED 15:34 → M ED INP 15:35 → M PCU 16:41
PROVIDERS: ADMIT Hospitalist; ATTEND Hospitalist
DX: I16.0 Hypertensive urgency (principal); R42 Dizziness and giddiness; N17.9 Acute kidney failure, unspecified; D72.829 Elevated white blood cell count, unspecified; D50.9 Iron deficiency anemia, unspecified; E03.9 Hypothyroidism, unspecified; E11.9 Type 2 diabetes mellitus without complications; K21.9 Gastro-esophageal reflux disease without esophagitis; I25.2 Old myocardial infarction; Z98.61 Coronary angioplasty status; I25.10 Atherosclerotic heart disease of native coronary artery without angina pectoris; E78.5 Hyperlipidemia, unspecified; N52.9 Male erectile dysfunction, unspecified; K57.30 Diverticulosis of large intestine without perforation or abscess without bleeding; Z85.828 Personal history of other malignant neoplasm of skin; Z79.82 Long term (current) use of aspirin; Z79.899 Other long term (current) drug therapy

== ENCOUNTER 2016-06-03 11:41 | Emergency (ER) | payer OTHER ==
[~2016-06-03 11:41] MED LIST changes: +ASPI81TA85 PO; +CLOP75TA2 PO; +LISI10TA4 PO; +METO12TA PO; +NITR0.4S14 SL; +OMEP20CA3 PO; +REFR0.5D8 OU; +SYNT50TA PO; +VITA500C24 PO; -hydrALAZINE INJ 20 MG/ML VIAL IV SCH
[2016-06-03 12:27] LABS: BASO % 0.4 % (0.0-1.0); EOS # 0.1 K/mm3 (0.0-0.50); EOS % 0.7 % (0.0-3.0); LARGE UNSTAINED CELL # 0.1 K/mm3 (0.0-0.4); LARGE UNSTAINED CELL % 1.4 % (0.0-4.0); LYMPH # 1.3 K/mm3 (1.5-4.5); MEAN CORPUSCULAR HEMOGLOBIN 30.7 pg (27.0-33.0); MEAN CORPUSCULAR HGB CONC 33.3 g/dl (32.0-36.5); MONO # 0.8 K/mm3 (0.0-0.8); MONO % 9.3 % (0.0-5.0); NEUTROPHILS # 6.8 K/mm3 (1.8-7.7); NEUTROPHILS % 75.2 % (36.0-66.0); PLATELET COUNT, AUTOMATED 183 k/mm3 (150-450); RED CELL DISTRIBUTION WIDTH 14.3 % (11.5-14.5)
[2016-06-03 12:39] LABS: ANION GAP 7 MEQ/L (8-16); BLOOD UREA NITROGEN 26 MG/DL (7-18); CALCIUM LEVEL 9.3 MG/DL (8.8-10.2); CARBON DIOXIDE LEVEL 29 MEQ/L (21-32); CHLORIDE LEVEL 105 MEQ/L (98-107); GLOMERULAR FILTRATION RATE 54.1 (>49); GLUCOSE, FASTING 110 MG/DL (80-110); POTASSIUM SERUM 3.7 MEQ/L (3.5-5.1); SODIUM LEVEL 141 MEQ/L (136-145)
--- NOTE | 2016-06-03 12:53 | REP ---
PORTABLE CHEST: AP portable view of the chest is performed and compared to a prior study of 05/30/2016. There is no acute infiltrate or pulmonary edema. Heart is upper limits of normal in size. Mediastinal silhouette is unremarkable. IMPRESSION: No acute infiltrate. Signed by Tyler Sandhu MD 06/03/2016 04:39 P
[2016-06-03 17:33] VITALS: BP 143/92
--- NOTE | 2016-06-03 23:12 | ECGEPIP ---
Stationary ECG Study [facility] Test Date: 2016-06-03 Pat Name: CHRIS KRAFT Department: Room: - Gender: M Gravedigger: JGreyson : 1950 Requested By: ROLF Bates Order Number: [id number] Reading MD: Ronnie Amezcua Measurements Intervals [place] Rate: 78 P: 17 MD: 129 QRS: -38 QRSD: 87 T: -42 QT: 360 QTc: 411 Interpretive Statements SINUS RHYTHM Recent INFERIOR MYOCARDIAL INFARCTION MODERATE T-WAVE ABNORMALITY, CONSIDER LATERAL ISCHEMIA Less prominent lateral repolarization abnormalities compared with 05/30/2016. Electronically Signed On 06-03-2016 23:11:28 EDT by Ronnie Amezcua
--- NOTE | 2016-06-04 21:34 | ECGEPIP ---
Stationary ECG Study [facility] - ED Test Date: 2016-06-03 Pat Name: CHRIS KRAFT Department: Room: - Gender: M Rat Culturist: JT : 1950 Requested By: ROLF Bates Order Number: [id number] Reading MD: Valarie Bowles Measurements Intervals [place] Rate: 82 P: 14 NE: 123 QRS: -38 QRSD: 86 T: -43 QT: 348 QTc: 407 Interpretive Statements SINUS RHYTHM PATTERN CONSISTENT WITH PULMONARY DISEASE INFERIOR MYOCARDIAL INFARCTION, ?ACUITY MODERATE T-WAVE ABNORMALITY, CONSIDER LATERAL ISCHEMIA SIMILAR 05/30/16 Electronically Signed On 06-04-2016 21:33:36 EDT by Valarie Bowles
--- NOTE | 2016-06-08 21:11 | HOLTMON ---
[facility] Test Date: 2016-06-03 Pat Name: CHRIS KRAFT Department: Room: - Gender: Ssrs Developer: Suzie Serrano CCT : 1950 Requested By: ROLF Bates Order Number: [id number] Reading MD: Nory Ventura Interpretive Statements Patient was monitored for 24 hours. Baseline rhythm is sinus rhythm with normal AV conduction. Minimum HR was 61 bpm, average HR 90 bpm and maximum HR 144 bpm. There were 500 PVC's including 4 beat run of wide complex rhythm with HR 80 bpm. There were total 150 PAC's including brief runs of atrial tachycardia (longest 5 beats with HR 158 bpm). Patient reported 2 episodes of palpitations corresponding to sinus rhythm. Overall relatively normal Holter monitor. No correlation of symptoms to arrhythmias. Electronically Signed On 06-08-2016 21:10:39 EDT by Nory Ventura
== END 2016-06-03 18:01 | disposition home or self-care (01) ==
LOC: M ED 13:11
DX: R07.9 Chest pain, unspecified (principal); I21.3 ST elevation (STEMI) myocardial infarction of unspecified site; R00.2 Palpitations; R94.31 Abnormal electrocardiogram [ECG] [EKG]; I10 Essential (primary) hypertension; E78.5 Hyperlipidemia, unspecified; K21.9 Gastro-esophageal reflux disease without esophagitis; E03.9 Hypothyroidism, unspecified; R73.09 Other abnormal glucose; Z95.5 Presence of coronary angioplasty implant and graft; Z82.49 Family history of ischemic heart disease and other diseases of the circulatory system; Z79.899 Other long term (current) drug therapy; Z79.01 Long term (current) use of anticoagulants; Z79.82 Long term (current) use of aspirin

== ENCOUNTER → 2016-07-02 | Outpatient (CLI) | payer OTHER ==
[2016-07-02 20:24] LABS: ALBUMIN 3.9 GM/DL (3.2-5.2); ANION GAP 7 MEQ/L (8-16); BLOOD UREA NITROGEN 22 MG/DL (7-18); CALCIUM LEVEL 9.1 MG/DL (8.8-10.2); CARBON DIOXIDE LEVEL 26 MEQ/L (21-32); CHLORIDE LEVEL 108 MEQ/L (98-107); CREATININE FOR GFR 1.21 MG/DL (0.70-1.30); GLOMERULAR FILTRATION RATE > 60.0 (>49); GLUCOSE, FASTING 87 MG/DL (80-110); PHOSPHORUS LEVEL 4.1 MG/DL (2.5-4.9); POTASSIUM SERUM 4.6 MEQ/L (3.5-5.1); SODIUM LEVEL 141 MEQ/L (136-145)
== END ==
LOC: M WUC 16:45
PROVIDERS: ATTEND Internal Medicine Cardiovascular Disease
DX: R00.2 Palpitations (principal); R94.31 Abnormal electrocardiogram [ECG] [EKG]

== ENCOUNTER → 2016-07-11 | Outpatient (REF) | payer OTHER | LOC: M LAB REF 16:14 | PROVIDERS: ATTEND Family Medicine | DX: D50.9 Iron deficiency anemia, unspecified (principal) ==

== ENCOUNTER → 2016-07-21 | Outpatient (REF) | payer OTHER | LOC: M LAB REF 17:07 | PROVIDERS: ATTEND Nurse Practitioner Family | DX: N20.0 Calculus of kidney (principal) ==

== ENCOUNTER → 2016-08-06 | Outpatient (CLI) | payer OTHER | LOC: M WUC 11:36 | PROVIDERS: ATTEND Nurse Practitioner Family | DX: Z12.5 Encounter for screening for malignant neoplasm of prostate (principal) ==

== ENCOUNTER → 2016-08-08 | Outpatient (CLI) | payer OTHER ==
--- NOTE | 2016-08-08 09:11 | REP ---
KUB: Single view. HISTORY: Nephrolithiasis. Comparison KUB November 29, 2004. Comparison CT abdomen study August 23, 2014. FINDINGS: The bowel gas pattern is unremarkable. There is vascular calcification in the pelvis. Phleboliths are noted bilaterally in the pelvis. There are tiny calcific opacities projecting in the lower pole of each kidney consistent with intrarenal nephrolithiasis. No definite ureteral stone is seen. The intrarenal calculi appear to be somewhat linear. The largest measures 4 mm in greatest diameter. IMPRESSION: Suspect bilateral intrarenal nephrolithiasis. No definite ureteral calculus seen. Signed by Slim Banerjee MD 08/08/2016 09:37 A
== END ==
LOC: M SMT 08:01
PROVIDERS: ATTEND Nurse Practitioner Family
DX: N20.0 Calculus of kidney (principal)

== ENCOUNTER → 2016-08-19 | Outpatient (CLI) | payer OTHER ==
--- NOTE | 2016-08-19 18:05 | REP ---
CT ABDOMEN: REASON FOR EXAM: Nephrolithiasis and abdominal/flank pain. COMPARISON: 08/23/2014 which showed bilateral nephrolithiasis. The lung bases show chronic changes with subsegmental atelectatic change. There are no pleural or pericardial effusions. The changes of the lung bases could obscure significant nodule. Limited evaluation of the solid intraabdominal gallbladder show no significant changes from the prior exam. Limited evaluation of the pancreas and adrenal glands show no significant changes from the prior exam. Once again, there are bilateral nephroliths. Once again there are distal left ureteroliths with mild resultant left sided hydronephrosis and hydroureter. The distal ureteroliths are just proximal to the ureterovesical junction. Limited evaluation of the abdominal aorta and paraaortic regions show no gross abnormalities or significant changes from the prior exam. Limited evaluation of the bowel loops and their mesenteries show no gross abnormalities or significant changes from the prior exam. No free fluid or free air is seen in the abdomen or pelvis. Bone window technique throughout the exam shows no significant change in appearance of the osseous structures. IMPRESSION: 1. Lung base opacities as described above. The subsegmental atelectatic change could obscure a significant nodule. Consider CT chest if relevant. 2. Left sided hydronephrosis and hydroureter due to distal left ureteroliths as described above. 3. Persistent bilateral nephroliths. 4. Other findings as described above. Signed by Hermelindo Auguste DO 08/19/2016 07:02 P
== END ==
LOC: M RAD 16:35
PROVIDERS: ATTEND Nurse Practitioner Family
DX: N20.0 Calculus of kidney (principal)

== ENCOUNTER → 2016-08-27 | Outpatient (CLI) | payer OTHER ==
--- NOTE | 2016-08-27 08:29 | REP ---
Clinical: Nephrolithiasis. Technique: Single supine view of the abdomen and pelvis. Comparison: 08/08/2016. Findings: Small stable intrarenal calculi are again identified bilaterally. Calcifications identified in the pelvis remains stable and likely represent phleboliths. Bowel gas pattern suggests fecal stasis without obstruction. No organomegaly. Skeletal structures intact and age appropriate. Impression: Small bilateral nephroliths similar to prior examination. Signed by Angel Luis Garcia MD 08/27/2016 08:20 A
== END ==
LOC: M SMT 08:11
PROVIDERS: ATTEND Nurse Practitioner Family
DX: N20.0 Calculus of kidney (principal)

== ENCOUNTER → 2016-10-30 | Outpatient (REF) | payer OTHER ==
[~2016-10-30] MED LIST changes: -ATOR40TA PO; +ATOR40TA75 PO; +FERR1TAB8 PO; -FERR325T PO; -METF500T PO; +METF500T13 PO; -METO12TA PO; +METO1TAB87 PO
[2016-10-30 20:26] LABS: ALBUMIN 3.8 GM/DL (3.2-5.2); ALBUMIN/GLOBULIN RATIO 1.36 (1.00-1.93); CALCIUM LEVEL 8.9 MG/DL (8.8-10.2); CREATININE FOR GFR 1.42 MG/DL (0.70-1.30); GLOMERULAR FILTRATION RATE 53.3 (>49); POTASSIUM SERUM 4.9 MEQ/L (3.5-5.1); THYROXINE (T4) 9.6 UG/DL (4.5-12.0); TOTAL PROTEIN 6.6 GM/DL (6.4-8.2)
== END ==
LOC: M LAB REF 16:50
PROVIDERS: ATTEND Family Medicine
DX: D50.9 Iron deficiency anemia, unspecified (principal); E78.5 Hyperlipidemia, unspecified; E03.9 Hypothyroidism, unspecified

== ENCOUNTER → 2016-11-10 | Outpatient (CLI) | payer OTHER ==
[2016-11-10 09:42] LABS: ALBUMIN 3.6 GM/DL (3.2-5.2); ALBUMIN/GLOBULIN RATIO 1.33 (1.00-1.93); ALKALINE PHOSPHATASE 51 U/L (45-117); ALT/SGPT 34 U/L (12-78); ANION GAP 9 MEQ/L (8-16); AST/SGOT 24 U/L (15-37); BILIRUBIN,TOTAL 0.6 MG/DL (0.2-1.0); BLOOD UREA NITROGEN 22 MG/DL (7-18); CALCIUM LEVEL 9.1 MG/DL (8.8-10.2); CARBON DIOXIDE LEVEL 24 MEQ/L (21-32); CHLORIDE LEVEL 110 MEQ/L (98-107); CREATININE FOR GFR 1.26 MG/DL (0.70-1.30); GLOMERULAR FILTRATION RATE > 60.0 (>49); GLUCOSE, FASTING 83 MG/DL (80-110); POTASSIUM SERUM 4.6 MEQ/L (3.5-5.1); SODIUM LEVEL 143 MEQ/L (136-145); TOTAL PROTEIN 6.3 GM/DL (6.4-8.2)
== END ==
LOC: M WUC 08:26
PROVIDERS: ATTEND Internal Medicine Cardiovascular Disease
DX: I11.9 Hypertensive heart disease without heart failure (principal)

== ENCOUNTER → 2017-02-19 | Outpatient (REF) | payer OTHER | LOC: M LAB REF 13:15 | PROVIDERS: ATTEND Surgery | DX: C44.529 Squamous cell carcinoma of skin of other part of trunk (principal); L57.0 Actinic keratosis ==

== ENCOUNTER → 2017-03-27 | Outpatient (CLI) | payer OTHER ==
[2017-03-27 20:31] LABS: ALBUMIN 3.8 GM/DL (3.2-5.2); ALBUMIN/GLOBULIN RATIO 1.36 (1.00-1.93); ALKALINE PHOSPHATASE 60 U/L (45-117); ALT/SGPT 25 U/L (12-78); ANION GAP 5 MEQ/L (8-16); AST/SGOT 22 U/L (7-37); BILIRUBIN,TOTAL 0.7 MG/DL (0.2-1.0); BLOOD UREA NITROGEN 22 MG/DL (7-18); CALCIUM LEVEL 9.5 MG/DL (8.8-10.2); CARBON DIOXIDE LEVEL 30 MEQ/L (21-32); CHLORIDE LEVEL 106 MEQ/L (98-107); CREATININE FOR GFR 1.43 MG/DL (0.70-1.30); GLOMERULAR FILTRATION RATE 52.8 (>49); GLUCOSE, FASTING 85 MG/DL (70-100); POTASSIUM SERUM 4.9 MEQ/L (3.5-5.1); SODIUM LEVEL 141 MEQ/L (136-145); TOTAL PROTEIN 6.6 GM/DL (6.4-8.2)
[2017-03-27 20:43] LABS: ESTIMATED AVERAGE GLUCOSE 134 MG/DL (60-110); HEMOGLOBIN A1c 6.3 %
== END ==
LOC: M WUC 12:07
DX: Z00.00 Encounter for general adult medical examination without abnormal findings (principal); E11.9 Type 2 diabetes mellitus without complications
CPT/HCPCS: 80053

== ENCOUNTER → 2017-12-24 | Outpatient (CLI) | payer OTHER ==
[2017-12-24 14:18] LABS: HEMATOCRIT 45.7 % (42.0-52.0); HEMOGLOBIN 14.6 g/dl (13.5-17.5); MEAN CORPUSCULAR HEMOGLOBIN 30.2 pg (27.0-33.0); MEAN CORPUSCULAR HGB CONC 31.9 g/dl (32.0-36.5); MEAN CORPUSCULAR VOLUME 94.4 fl (80.0-96.0); PLATELET COUNT, AUTOMATED 219 10^3/uL (150-450); RED BLOOD COUNT 4.84 10^6/uL (4.30-6.10); RED CELL DISTRIBUTION WIDTH 14.3 % (11.5-14.5); WHITE BLOOD COUNT 10.4 10^3/uL (4.0-10.0)
[2017-12-24 14:22] LABS: ALBUMIN 3.5 GM/DL (3.2-5.2); ALBUMIN/GLOBULIN RATIO 1.17 (1.00-1.93); ALKALINE PHOSPHATASE 60 U/L (45-117); ALT/SGPT 29 U/L (12-78); ANION GAP 8 MEQ/L (8-16); AST/SGOT 16 U/L (7-37); BILIRUBIN,TOTAL 0.7 MG/DL (0.2-1.0); BLOOD UREA NITROGEN 22 MG/DL (7-18); CALCIUM LEVEL 9.3 MG/DL (8.8-10.2); CARBON DIOXIDE LEVEL 27 MEQ/L (21-32); CHLORIDE LEVEL 107 MEQ/L (98-107); CREATININE FOR GFR 1.42 MG/DL (0.70-1.30); GLOMERULAR FILTRATION RATE 53.1 (>49); GLUCOSE, FASTING 95 MG/DL (70-100); NT-PRO BNP 78 PG/ML (<125); SODIUM LEVEL 142 MEQ/L (136-145); TOTAL PROTEIN 6.5 GM/DL (6.4-8.2)
== END ==
LOC: M WUC 09:59
DX: I11.9 Hypertensive heart disease without heart failure (principal); R06.02 Shortness of breath; I25.10 Atherosclerotic heart disease of native coronary artery without angina pectoris; R00.2 Palpitations
CPT/HCPCS: 80053

== ENCOUNTER → 2018-01-29 | Outpatient (CLI) | payer OTHER ==
[2018-01-29 15:28] LABS: ALBUMIN 3.7 GM/DL (3.2-5.2); ALBUMIN/GLOBULIN RATIO 1.32 (1.00-1.93); ALKALINE PHOSPHATASE 61 U/L (45-117); ALT/SGPT 32 U/L (12-78); ANION GAP 7 MEQ/L (8-16); AST/SGOT 13 U/L (7-37); BLOOD UREA NITROGEN 21 MG/DL (7-18); CALCIUM LEVEL 9.4 MG/DL (8.8-10.2); CARBON DIOXIDE LEVEL 28 MEQ/L (21-32); CHLORIDE LEVEL 107 MEQ/L (98-107); CHOLESTEROL LEVEL 189 MG/DL (<200); CHOLESTEROL RISK RATIO 3.566 (<5); CREATININE FOR GFR 1.35 MG/DL (0.70-1.30); GLOMERULAR FILTRATION RATE 56.3 (>49); GLUCOSE, FASTING 102 MG/DL (70-100); HDL CHOLESTEROL 53 MG/DL (>40); LDL CHOLESTEROL 100 MG/DL (<100); NON-HDL-C 136 MG/DL; POTASSIUM SERUM 4.8 MEQ/L (3.5-5.1); SODIUM LEVEL 142 MEQ/L (136-145); TOTAL PROTEIN 6.5 GM/DL (6.4-8.2); TRIGLYCERIDES LEVEL 180 MG/DL (<150)
[2018-01-29 15:52] LABS: ESTIMATED AVERAGE GLUCOSE 143 MG/DL (60-110); HEMOGLOBIN A1c 6.6 %
[2018-01-29 15:55] LABS: MALB URINE SIEMENS 27.2 MG/L; MAU/CREAT RATIO 14.1 MCG/MG (0.0-30.0)
== END ==
LOC: M WUC 11:09
DX: E11.9 Type 2 diabetes mellitus without complications (principal); E78.5 Hyperlipidemia, unspecified; E03.9 Hypothyroidism, unspecified
CPT/HCPCS: 84443

== ENCOUNTER → 2018-12-27 | Outpatient (CLI) | payer MEDICARE ==
[~2018-12-27] MED LIST changes: -OMEP20CA3 PO; +OMEP20CA4 PO; -OMEP40CA2 PO; +OMEP40CA97 PO
--- NOTE | 2018-12-27 14:30 | REP ---
Clinical: Heel pain. Technique: Axial and lateral views of the calcaneus. Findings: Small/moderate calcaneal heal spur. Joint spaces are intact and normal. No acute fracture or dislocation. Evidence for peripheral vascular disease. Impression: Calcaneal heal spur. Electronically Signed by Angel Luis Garcia MD 12/27/2018 02:21 P
== END ==
LOC: M WUC 14:00
PROVIDERS: ATTEND Nurse Practitioner Family
DX: M77.32 Calcaneal spur, left foot (principal)

== ENCOUNTER → 2019-02-22 | Outpatient (REF) | payer MEDICARE, BC ==
[~2019-02-22] MED LIST changes: +OMEP1CAP73 PO; -OMEP20CA4 PO
== END ==
LOC: M SMT 13:20
PROVIDERS: ATTEND Nurse Practitioner Women's Health
DX: N20.0 Calculus of kidney (principal)
CPT/HCPCS: 82360; G0463

== ENCOUNTER → 2019-02-22 | Outpatient (REF) | payer MEDICARE, BC ==
[~2019-02-22] MED LIST changes: +OMEP-172 PO; -OMEP1CAP73 PO
[2019-02-22 13:24] LABS: APPEARANCE, URINE CLEAR (CLEAR); BACTERIA, URINE AUTO NEGATIVE (NEGATIVE); BILIRUBIN, URINE AUTO NEGATIVE (NEGATIVE); BLOOD, URINE BLOOD NEGATIVE (NEGATIVE); CALCIUM OXALATE CRYSTALS SMALL; COLOR, URINE YELLOW (YELLOW); GLUCOSE, URINE (UA) AUTO NEGATIVE (NEGATIVE); KETONE, URINE AUTO NEGATIVE (NEGATIVE); LEUKOCYTE ESTERASE, URINE AUTO NEGATIVE (NEGATIVE); MUCUS, URINE SMALL (NEGATIVE); NITRITE, URINE AUTO NEGATIVE (NEGATIVE); PROTEIN, URINE AUTO NEGATIVE (NEGATIVE); RBC, URINE AUTO 0 /HPF (0-3); SPECIFIC GRAVITY URINE AUTO 1.024 (1.002-1.035); SQUAMOUS EPITHELIAL CELL UR AU 0 /HPF (0-6); UROBILINOGEN, URINE AUTO 0.2 mg/dL (0.0-2.0); WBC, URINE AUTO 2 /HPF (0-3)
== END ==
LOC: M SMT 13:08
PROVIDERS: ATTEND Nurse Practitioner Women's Health
DX: N20.0 Calculus of kidney (principal)

== ENCOUNTER → 2019-03-03 | Outpatient (CLI) | payer MEDICARE ==
--- NOTE | 2019-03-03 21:43 | REP ---
Clinical: Nephrolithiasis. Technique: Axial noncontrast images from the lung bases to the pubic symphysis with coronal and sagittal re-formations. Findings: Kidneys demonstrate multiple bilateral nephroliths measuring up to 4.5 mm in the right kidney and 5.5 mm in the left kidney. There is a 2 mm calculus in the proximal right ureter (image 83) without associated hydronephrosis or acute perinephric stranding and correlation with physical examination is recommended. The left ureter appears normal. The bladder is unremarkable. Liver demonstrates 1.2 cm hypodensity in the right lobe suggesting cyst. Spleen, pancreas, gallbladder, and bilateral adrenal glands are normal for noncontrast evaluation. A small hiatal hernia suggested at the gastroesophageal junction. There is no evidence for bowel obstruction or acute inflammatory process. Diverticulosis noted without acute diverticulitis. Pelvis demonstrates prostatomegaly with mass effect on the base of the bladder. No ascites. No free air. No adenopathy. Atherosclerotic changes to the aorta and vasculature without aneurysm. Musculoskeletal structures demonstrate degenerative changes without focal abnormality. The lung bases are clear. Impression: 1. Bilateral nephrolithiasis and 2 mm right ureteral stone without significant hydronephrosis. Correlation with physical examination is recommended. 2. Prostatomegaly. 3. Hepatic hypodensity unchanged compared to 08/19/2016 likely representing small cyst or hemangioma. 4. Diverticulosis. 5. Atherosclerotic disease. Electronically Signed by Angel Luis Garcia MD 03/03/2019 09:36 P
== END ==
LOC: M RAD 13:25
PROVIDERS: ATTEND Nurse Practitioner Women's Health
DX: N20.0 Calculus of kidney (principal); N40.0 Benign prostatic hyperplasia without lower urinary tract symptoms

== ENCOUNTER → 2019-03-21 | Outpatient (REF) | payer MEDICARE ==
[~2019-03-21] MED LIST changes: +CARV25TA PO; +EZET10TA21 PO; +FLOM0.4C39 PO; -OMEP-172 PO; +OMEP1CAP73 PO; +SPIR-10 PO
[2019-03-21 13:43] LABS: AMORPHOUS SEDIMENT SMALL (NEGATIVE); APPEARANCE, URINE CLEAR (CLEAR); BACTERIA, URINE AUTO NEGATIVE (NEGATIVE); BILIRUBIN, URINE AUTO NEGATIVE (NEGATIVE); BLOOD, URINE BLOOD NEGATIVE (NEGATIVE); COLOR, URINE STRAW (YELLOW); GLUCOSE, URINE (UA) AUTO NEGATIVE (NEGATIVE); KETONE, URINE AUTO NEGATIVE (NEGATIVE); LEUKOCYTE ESTERASE, URINE AUTO NEGATIVE (NEGATIVE); NITRITE, URINE AUTO NEGATIVE (NEGATIVE); PROTEIN, URINE AUTO NEGATIVE (NEGATIVE); RBC, URINE AUTO 0 /HPF (0-3); SPECIFIC GRAVITY URINE AUTO 1.003 (1.002-1.035); SQUAMOUS EPITHELIAL CELL UR AU 0 /HPF (0-6); UROBILINOGEN, URINE AUTO 0.2 mg/dL (0.0-2.0); WBC, URINE AUTO 1 /HPF (0-3)
== END ==
LOC: M SMT 13:09
PROVIDERS: ATTEND Nurse Practitioner Women's Health
DX: Z01.818 Encounter for other preprocedural examination (principal); N20.0 Calculus of kidney
CPT/HCPCS: 81001; 87086; G0463

== ENCOUNTER → 2019-03-24 | Outpatient (CLI) | payer MEDICARE ==
[~2019-03-24] MED LIST changes: -CARV25TA PO; -EZET10TA21 PO; -FLOM0.4C39 PO; -SPIR-10 PO
[2019-03-24 12:35] LABS: CALCIUM LEVEL 9.5 MG/DL (8.8-10.2); CREATININE FOR GFR 1.41 MG/DL (0.70-1.30); GLOMERULAR FILTRATION RATE 53.4 (>49); POTASSIUM SERUM 4.9 MEQ/L (3.5-5.1)
[2019-03-24 12:36] LABS: MEAN CORPUSCULAR HEMOGLOBIN 26.8 pg (27.0-33.0); MEAN CORPUSCULAR HGB CONC 30.2 g/dl (32.0-36.5); MEAN CORPUSCULAR VOLUME 88.7 fl (80.0-96.0); PLATELET COUNT, AUTOMATED 268 10^3/uL (150-450); RED BLOOD COUNT 4.85 10^6/uL (4.30-6.10); WHITE BLOOD COUNT 8.9 10^3/uL (4.0-10.0)
[2019-03-24 12:50] LABS: INR 1.03; PARTIAL THROMBOPLASTIN TIME 23.2 SECONDS (25.0-38.4); PROTHROMBIN TIME 13.2 SECONDS (11.8-14.0)
== END ==
LOC: M WUC 10:02
PROVIDERS: ATTEND Nurse Practitioner Women's Health
DX: N20.0 Calculus of kidney (principal); Z01.818 Encounter for other preprocedural examination

== ENCOUNTER 2019-03-31 06:22 | Day surgery (SDC) | payer MEDICARE ==
[~2019-03-31] VITALS: Ht 175.3 cm; Wt 92.0 kg
[~2019-03-31 06:22] MED LIST changes: +CARV25TA PO; +EZET10TA21 PO; +FLOM0.4C39 PO; +LIDOCAINE 1% MDV 20ML VIAL SQ PRN; +LR 1,000 ML IV ONE; +SPIR-10 PO; +ceFAZolin SOD 2 GM in IV 1 EA IV ONE
--- NOTE | 2019-03-31 07:04 | REP ---
Supine abdomen single AP view for renal calculi: Comparison is 08/27/2016. Additionally there is a comparison abdomen/pelvis CT dated 03/03/2019. There are four small calculi, each measuring approximate 3 mm in diameter projected over the right kidney. There is a 5 mm calculus projected over the left kidney. There are pelvic calcifications, unchanged, likely the left. The bowel gas pattern is normal for Electronically Signed by Tyler Lewis MD 03/31/2019 06:56 A
[2019-03-31] MEDS ORDERED: propofoL 500 MG/50 ML VIAL As Ordered ONE (08:07)
[2019-03-31] MEDS ORDERED: dexameTHASONE 4 MG/ML 1ML VIAL (J1100) As Ordered ONE (08:07)
[2019-03-31] MEDS ORDERED: ONDANSETRON 4MG/2ML VIAL (J2405) As Ordered ONE (08:07)
[2019-03-31] MEDS ORDERED: MIDAZOLAM INJ 2 MG/2 ML VIAL (J2250) As Ordered ONE (08:07)
[2019-03-31] MEDS ORDERED: fentaNYL 100 MCG/2 ML INJECTION (J3010) As Ordered ONE (08:08)
[2019-03-31] MEDS ORDERED: propofoL 200 MG/20 ML VIAL As Ordered ONE (09:12)
[2019-03-31] MEDS ORDERED: ONDANSETRON 4MG/2ML VIAL (J2405) IV PRN (10:30)
[2019-03-31] MEDS ORDERED: METOCLOPRAMIDE INJ 10MG/2ML VIAL (J2765) IV PRN (10:30)
[2019-03-31] MEDS ORDERED: PERCOCET 5MG/325MG TAB PO PRN (10:30)
[2019-03-31] MEDS ORDERED: LR 1,000 ML IV SCH (10:30)
[2019-03-31 10:40] VITALS: BP 145/75
--- NOTE | 2019-03-31 21:29 | RO ---
DATE OF PROCEDURE: 03/31/2019 PREPROCEDURE DIAGNOSIS: Bilateral kidney stones. POSTPROCEDURE DIAGNOSIS: Bilateral kidney stones. PROCEDURE: Bilateral extracorporeal shock wave lithotripsy. SURGEON: Nate Mix MD SENIOR CONTROLS ENGINEER: None ANESTHESIA: Monitored anesthesia care (MAC). OPERATIVE INDICATIONS: This is a 68-year-old male who was found to have bilateral nonobstructing kidney stones measuring up to 6 mm in size. He was brought to the operating room today for the above listed procedure. DESCRIPTION OF PROCEDURE: The patient was brought to the operating room where MAC anesthesia was administered. Prophylactic antibiotics were infused. He was then placed in the lithotomy position in preparation for a left-sided extracorporeal shock wave lithotripsy first. Fluoroscopy was utilized to monitor stone position and fragmentation throughout the procedure. Shock waves were then delivered to the left-sided kidney stone ungated. There were no arrhythmias. After 2500 shocks, the patient was repositioned for a right-sided extracorporeal shock wave lithotripsy. Once again, fluoroscopy was utilized to monitor stone position and fragmentation throughout the procedure. We tried to distribute the shocks through different stones in the right kidney. After 2500 shocks, the procedure was concluded. The patient was then awakened from anesthesia and transported to the recovery room in stable condition. Estimated blood loss: 0 mL. Complications: None. Specimens: None. Plan: The patient will followup in the clinic in a few weeks with imaging prior to assess for residual stone burden. THOMAS
== END 2019-03-31 11:05 | disposition home or self-care (01) ==
LOC: M SDC 06:22
PROVIDERS: ATTEND Urology
DX: N20.0 Calculus of kidney (principal); I25.2 Old myocardial infarction; I10 Essential (primary) hypertension; E78.00 Pure hypercholesterolemia, unspecified; K21.9 Gastro-esophageal reflux disease without esophagitis; E11.9 Type 2 diabetes mellitus without complications; E03.9 Hypothyroidism, unspecified; Z79.899 Other long term (current) drug therapy; Z79.84 Long term (current) use of oral hypoglycemic drugs; Z79.82 Long term (current) use of aspirin
CPT/HCPCS: 50590; 74018; J0690; J1100; J2250; J2405; J3010

== ENCOUNTER → 2019-04-20 | Outpatient (CLI) | payer MEDICARE ==
[~2019-04-20] MED LIST changes: -LIDOCAINE 1% MDV 20ML VIAL SQ PRN; -LR 1,000 ML IV ONE; -ceFAZolin SOD 2 GM in IV 1 EA IV ONE
--- NOTE | 2019-04-20 10:16 | REP ---
Clinical: Kidney stone. Technique: Two supine views of the abdomen and pelvis. Findings: Small calcifications overlying the lower pole of the right kidney measuring up to 2.5 mm suggest nephrolithiasis. Further evaluation of the urinary tract system is limited by overlying bowel gas/fecal material. Moderate fecal stasis. No bowel obstruction. Skeletal structures demonstrate age-related changes. Impression: 1. Limited examination with suspected nonobstructing right renal calculi up to 2.5 mm. Electronically Signed by Angel Luis Garcia MD 04/20/2019 10:09 A
== END ==
LOC: M WUC 09:52
PROVIDERS: ATTEND Nurse Practitioner Women's Health
DX: N20.0 Calculus of kidney (principal)

== ENCOUNTER → 2019-04-21 | Outpatient (REF) | payer MEDICARE | LOC: M SMT 13:43 | PROVIDERS: ATTEND Nurse Practitioner Family | DX: N20.0 Calculus of kidney (principal) ==

== ENCOUNTER → 2019-09-28 | Outpatient (REF) | payer MEDICARE ==
[~2019-09-28] MED LIST changes: -ASPI81TA85 PO; +ASPI81TA86 PO
[2019-11-16 14:37] LABS: PERCENT SATURATION 5.6 % (19.7-50.0)
== END ==
LOC: M LAB REF 12:34
PROVIDERS: ATTEND Family Medicine
DX: D50.9 Iron deficiency anemia, unspecified (principal); D51.9 Vitamin B12 deficiency anemia, unspecified

== ENCOUNTER → 2020-02-16 | Outpatient (CLI) | payer MEDICARE ==
[2020-02-16 14:14] LABS: CALCIUM LEVEL 9.4 MG/DL (8.8-10.2); CREATININE FOR GFR 1.46 MG/DL (0.70-1.30); GLOMERULAR FILTRATION RATE 51.1 (>49); MAGNESIUM LEVEL 2.3 MG/DL (1.8-2.4); POTASSIUM SERUM 5.2 MEQ/L (3.5-5.1)
== END ==
LOC: M WUC 10:39
PROVIDERS: ATTEND Physician Assistant
DX: I11.9 Hypertensive heart disease without heart failure (principal)

== ENCOUNTER → 2020-04-02 | Outpatient (REF) | payer MEDICARE ==
[2020-04-02 14:20] LABS: PERCENT SATURATION 8.4 % (19.7-50.0)
[2020-04-02 14:23] LABS: FOLATE 23.1 NG/ML
== END ==
LOC: M LAB REF 12:34
PROVIDERS: ATTEND Family Medicine
DX: D50.9 Iron deficiency anemia, unspecified (principal)

== ENCOUNTER → 2020-04-12 | Outpatient (CLI) | payer MEDICARE ==
[~2020-04-12] MED LIST changes: +LISI10TA22 PO; -LISI10TA4 PO
--- NOTE | 2020-04-12 08:46 | REP ---
INDICATION: KIDNEY STONES COMPARISON: 03/03/2019 TECHNIQUE: Axial noncontrast images from the lung bases to the pubic symphysis with coronal and sagittal reformations. This CT examination was performed using the following dose reduction techniques: Automated exposure control, adjustment of mA and/or kv according to the patient's size, and use of iterative reconstruction technique. FINDINGS: Lung bases demonstrate mild dependent changes. Liver, spleen, pancreas, gallbladder, and bilateral adrenal glands are normal. Kidneys demonstrate chronic mild perinephric stranding along with small stable intrarenal calculi primarily representing renovascular calcifications, but small nonobstructing nephroliths up to 3 mm cannot be excluded. No hydroureteronephrosis or obstructing ureteral calculi. The enteric system is unremarkable and without obstruction or acute inflammatory process. Normal terminal ileum and appendix identified in the right lower quadrant. Diverticulosis noted without acute diverticulitis. Pelvis demonstrates prostatomegaly with mass effect on the base of the bladder which is otherwise normal in appearance. No ascites. No free air. No adenopathy. No focal inflammatory stranding. Abdominal aorta without aneurysm. Musculoskeletal structures are intact and without acute osseous abnormality. Incidental benign hemangioma in the L3 vertebral body again noted. IMPRESSION: 1. No acute abdominopelvic pathology appreciated. 2. Small renovascular calcifications and possible nephroliths up to 3 mm without hydronephrosis or obstructing ureteral calculus. 3. Diverticulosis without acute diverticulitis. <Electronically signed by Angel Luis Garcia > 04/12/20 [id number]
[2020-04-19 20:07] LABS: CA Oxalate Dihy 20 % (.); Ca Ox Monohydrate 80 % (.); Size 3x6 mm (.)
== END ==
LOC: M RAD 07:26
PROVIDERS: ATTEND Specialist
DX: N20.0 Calculus of kidney (principal)

== ENCOUNTER → 2020-06-01 | Outpatient (CLI) | payer MEDICARE ==
[~2020-06-01] MED LIST changes: +ASPI81TA26 PO; +DOK100TA2 PO; +FERR325T18 PO
== END ==
LOC: M LABSMTC 12:37
PROVIDERS: ATTEND Anesthesiology
DX: Z01.812 Encounter for preprocedural laboratory examination (principal); Z20.828 Contact with and (suspected) exposure to other viral communicable diseases

== ENCOUNTER 2020-06-06 10:30 | Day surgery (SDC) | payer MEDICARE ==
[~2020-06-06] VITALS: Ht 175.3 cm; Wt 89.4 kg
[~2020-06-06 10:30] MED LIST changes: +NS 1,000 ML IV ONE
[2020-06-06] MEDS ORDERED: propofoL 200 MG/20 ML VIAL As Ordered ONE ×2 (13:15→13:46)
[2020-06-06] MEDS ORDERED: fentaNYL 100 MCG/2 ML INJECTION (J3010) As Ordered ONE (13:15)
[2020-06-06] MEDS ORDERED: LIDOCAINE 2% 100MG/5ML SDV (FOR ANES.) As Ordered ONE (13:15)
--- NOTE | 2020-06-06 13:34 | ROOR ---
Patient Name: John Skelton Procedure Date: 06/06/2020 1:15 PM Date of : 1950 Age: 70 Room: [facility] Gender: Male Note Status: Finalized Procedure: Upper Endoscopy + Biopsies Indications: Heartburn, Exclusion of Marquez's esophagus Providers: Navneet Rodriguez MD Referring MD: Casimiro Stout MD Requesting Provider: Medicines: Monitored Anesthesia Care Complications: No immediate complications. Procedure: Pre-Anesthesia Assessment: - The heart rate, respiratory rate, oxygen saturations, blood pressure, adequacy of pulmonary ventilation, and response to care were monitored throughout the procedure. The Endoscope was introduced through the mouth, and advanced to the second part of duodenum. The upper GI endoscopy was accomplished without difficulty. The patient tolerated the procedure well. Findings: The Z-line was regular and was found 40 cm from the incisors. Multiple biopsies were obtained with cold forceps for evaluation to rule out Marquez's Esophagus randomly at the gastroesophageal junction. A small hiatal hernia was present. Localized mild inflammation characterized by congestion (edema), erosions, erythema and linear erosions was found on the greater curvature of the stomach. Biopsies were taken with a cold forceps for Helicobacter pylori testing. The exam of the duodenum was otherwise normal. Impression: - Z-line regular, 40 cm from the incisors. - Small hiatal hernia. - Mucosal changes suspicious for gastritis. Biopsied. - Multiple biopsies were obtained at the gastroesophageal junction. - The examination was otherwise normal. Recommendation: - Patient has a contact number available for emergencies. The signs and symptoms of potential delayed complications were discussed with the patient. Return to normal activities tomorrow. Written discharge instructions were provided to the patient. - High fiber diet. - Discharge patient to home. - Follow an antireflux regimen. - Use Prilosec (omeprazole) 40 mg PO daily. - Await pathology results. - Telephone GI clinic for pathology results in 1 week. - Return to referring physician. - The findings and recommendations were discussed with the patient. Procedure Code(s): --- Professional --- 47359, Esophagogastroduodenoscopy, flexible, transoral; with biopsy, single or multiple Diagnosis Code(s): --- Professional --- K44.9, Diaphragmatic hernia without obstruction or gangrene K31.89, Other diseases of stomach and duodenum R12, Heartburn CPT copyright 2019 [employer]. All rights reserved. The codes documented in this report are preliminary and upon cogeneration technician review may be revised to meet current compliance requirements. Navneet Rodriguez MD Navneet Rodriguez MD 06/06/2020 1:33:27 PM Electronically signed by Navneet Rodriguez MD Number of Addenda: 0 Note Initiated On: 06/06/2020 1:15 PM Estimated Blood Loss: Estimated blood loss: none.
--- NOTE | 2020-06-06 13:53 | ROOR ---
Patient Name: John Skelton Procedure Date: 06/06/2020 1:16 PM Date of : 1950 Age: 70 Room: [facility] Gender: Male Note Status: Finalized Procedure: Total Colonoscopy to Cecum + Cold Snare Polypectomy + Hemoclips Indications: Screening for colorectal malignant neoplasm Providers: Navneet Rodriguez MD Referring MD: Casimiro Stout MD Requesting Provider: Medicines: Monitored Anesthesia Care Complications: No immediate complications. Procedure: Pre-Anesthesia Assessment: - The heart rate, respiratory rate, oxygen saturations, blood pressure, adequacy of pulmonary ventilation, and response to care were monitored throughout the procedure. The Colonoscope was introduced through the anus and advanced to the cecum, identified by appendiceal orifice and ileocecal valve. The colonoscopy was performed without difficulty. The patient tolerated the procedure well. The quality of the bowel preparation was excellent. Findings: The perianal and digital rectal examinations were normal. Non-bleeding internal hemorrhoids were found during retroflexion. The hemorrhoids were small and Grade I (internal hemorrhoids that do not prolapse). Scattered small-mouthed diverticula were found in the recto-sigmoid colon, sigmoid colon and descending colon. A small polyp was found at 20 cm proximal to the anus. The polyp was sessile. The polyp was removed with a cold snare. Resection and retrieval were complete. To prevent bleeding after the polypectomy, one hemostatic clip was successfully placed (MR conditional). There was no bleeding at the end of the procedure. The exam was otherwise without abnormality on direct and retroflexion views. Impression: - Non-bleeding internal hemorrhoids. - Diverticulosis in the recto-sigmoid colon, in the sigmoid colon and in the descending colon. - One small polyp at 20 cm proximal to the anus, removed with a cold snare. Resected and retrieved. Clip (MR conditional) was placed. - The examination was otherwise normal on direct and retroflexion views. - The exam was otherwise normal to the cecum. Recommendation: - Patient has a contact number available for emergencies. The signs and symptoms of potential delayed complications were discussed with the patient. Return to normal activities tomorrow. Written discharge instructions were provided to the patient. - High fiber diet. - Discharge patient to home. - Continue present medications. - Await pathology results. - Telephone GI clinic for pathology results in 1 week. - Return to referring physician. - Repeat colonoscopy for surveillance based on pathology results. - The findings and recommendations were discussed with the patient. Procedure Code(s): --- Professional --- 51764, Colonoscopy, flexible; with removal of tumor(s), polyp(s), or other lesion(s) by snare technique Diagnosis Code(s): --- Professional --- Z12.11, Encounter for screening for malignant neoplasm of colon K64.0, First degree hemorrhoids K63.5, Polyp of colon K57.30, Diverticulosis of large intestine without perforation or abscess without bleeding CPT copyright 2019 [employer]. All rights reserved. The codes documented in this report are preliminary and upon medical insurance coder review may be revised to meet current compliance requirements. Navneet Rodriguez MD Navneet Rodriguez MD 06/06/2020 1:52:58 PM Electronically signed by Navneet Rodriguez MD Number of Addenda: 0 Note Initiated On: 06/06/2020 1:16 PM Estimated Blood Loss: Estimated blood loss: none.
[2020-06-06 14:23] VITALS: BP 127/78
== END 2020-06-06 14:28 | disposition home or self-care (01) ==
LOC: M OPP 10:30
PROVIDERS: ATTEND Internal Medicine Gastroenterology
DX: Z12.11 Encounter for screening for malignant neoplasm of colon (principal); D12.6 Benign neoplasm of colon, unspecified; K57.30 Diverticulosis of large intestine without perforation or abscess without bleeding; K64.0 First degree hemorrhoids; K44.9 Diaphragmatic hernia without obstruction or gangrene; K31.89 Other diseases of stomach and duodenum; R12 Heartburn; I25.2 Old myocardial infarction; E03.9 Hypothyroidism, unspecified; Z79.84 Long term (current) use of oral hypoglycemic drugs; Z79.899 Other long term (current) drug therapy; Z95.5 Presence of coronary angioplasty implant and graft
CPT/HCPCS: 43239; 45385; 88305; J3010

== ENCOUNTER → 2020-07-04 | Outpatient (REF) | payer MEDICARE ==
[~2020-07-04] MED LIST changes: -NS 1,000 ML IV ONE
[2020-07-04 12:02] LABS: PERCENT SATURATION 17.2 % (19.7-50.0)
== END ==
LOC: M LAB REF 11:09
PROVIDERS: ATTEND Family Medicine
DX: D50.9 Iron deficiency anemia, unspecified (principal)

== ENCOUNTER → 2020-08-15 | Outpatient (CLI) | payer MEDICARE ==
[2020-08-15 14:12] LABS: CALCIUM LEVEL 9.5 MG/DL (8.8-10.2); CREATININE FOR GFR 1.32 MG/DL (0.70-1.30); GLOMERULAR FILTRATION RATE 57.3 (>49); MAGNESIUM LEVEL 2.3 MG/DL (1.8-2.4); POTASSIUM SERUM 4.3 MEQ/L (3.5-5.1); THYROID STIMULATING HORMONE 3.92 uIU/ML (0.358-3.740)
== END ==
LOC: M WUC 10:15
PROVIDERS: ATTEND Physician Assistant
DX: R00.2 Palpitations (principal)

== ENCOUNTER 2020-09-23 17:02 | Emergency (ER) | payer MEDICARE ==
[~2020-09-23] VITALS: Ht 175.3 cm; Wt 88.7 kg
[~2020-09-23 17:02] MED LIST changes: +OMEP40CA4 PO; -OMEP40CA97 PO
[2020-09-23 17:56] LABS: BASO # 0.1 10^3/uL (0.0-0.2); BASO % 0.7 % (0.0-1.0); EOS # 0.1 10^3/uL (0.0-0.5); HEMATOCRIT 48.1 % (42.0-52.0); HEMOGLOBIN 15.4 g/dl (13.5-17.5); LYMPH # 1.4 10^3/uL (1.5-5.0); LYMPH % 14.7 % (24.0-44.0); MEAN CORPUSCULAR HEMOGLOBIN 30.2 pg (27.0-33.0); MEAN CORPUSCULAR VOLUME 94.3 fl (80.0-96.0); MONO # 1.4 10^3/uL (0.0-0.8); NEUTROPHILS # 6.2 10^3/uL (1.5-8.5); NEUTROPHILS % 66.7 % (36.0-66.0); PLATELET COUNT, AUTOMATED 233 10^3/uL (150-450); WHITE BLOOD COUNT 9.4 10^3/uL (4.0-10.0)
[2020-09-23 18:05] VITALS: BP 187/112
[2020-09-23] MEDS ORDERED: NITROGLYCERIN 2% OINT 1 GM *U/D* PKT TOP ONE (18:05)
[2020-09-23] MEDS ORDERED: ASPIRIN 81 MG CHEW TABLET PO ONE (18:10)
[2020-09-23 18:16] LABS: CALCIUM LEVEL 9.4 MG/DL (8.8-10.2); CREATININE FOR GFR 1.41 MG/DL (0.70-1.30); GLOMERULAR FILTRATION RATE 53.1 (>49); POTASSIUM SERUM 4.5 MEQ/L (3.5-5.1)
--- NOTE | 2020-09-23 18:23 | REPVR ---
PROCEDURE INFORMATION: Exam: XR Chest Exam date and time: 09/23/2020 5:35 PM Age: 70 years old Clinical indication: Other: Chest pain TECHNIQUE: Imaging protocol: XR of the chest. Views: 1 view. COMPARISON: CR PORTABLE CHEST X-RAY 06/03/2016 12:24 PM FINDINGS: Lungs: Unremarkable. No consolidation. Pleural spaces: Unremarkable. No pleural effusion. No pneumothorax. Heart/Mediastinum: Unremarkable. No cardiomegaly. Bones/joints: The spine demonstrates mild degenerative changes. IMPRESSION: No acute findings. Electronically signed by: Juvencio Engel On 09/23/2020 18:23:07 PM
[2020-09-23] MEDS ORDERED: CLOPIDOGREL 300 MG TAB (PLAVIX) PO ONE (18:25)
[2020-09-23] MEDS ORDERED: HEPARIN SOD (PORCINE) 5000UNITS/ML 1ML VIAL/SYRINGE IV ONE (18:25)
[2020-09-23] MEDS ORDERED: HEPARIN DRIP 25,000 UNITS in IV 1 EA IV SCH (18:25)
[2020-09-23] MEDS ORDERED: FAMOTIDINE 20 MG TAB PO ONE (18:25)
[2020-09-23 18:28] LABS: ALBUMIN 3.7 GM/DL (3.2-5.2); BILIRUBIN,DIRECT 0.2 MG/DL (0.0-0.2); BILIRUBIN,TOTAL 0.7 MG/DL (0.2-1.0); TOTAL PROTEIN 6.7 GM/DL (6.4-8.2)
[2020-09-23 18:37] LABS: INR 0.84; PARTIAL THROMBOPLASTIN TIME 20.4 SECONDS (24.2-38.5); PROTHROMBIN TIME 11.7 SECONDS (12.5-14.3)
[2020-09-23 19:23] LABS: RSV AMPLIFICATION NEGATIVE (NEGATIVE)
[2020-09-23 20:40] VITALS: BP 142/96
--- NOTE | 2020-09-24 20:30 | ECGEPIP ---
[facility] - ED Test Date: 2020-09-23 Pat Name: CHRIS KRAFT Department: Room: - Gender: Male Position Classification Manager: SHERIE : 1950 Requested By: Camryn Mcdonough Order Number: [id number] Reading MD: Valarie Bowles Measurements Intervals [place] Rate: 75 P: 17 NM: 120 QRS: -31 QRSD: 84 T: -5 QT: 354 QTc: 395 Interpretive Statements Normal sinus rhythm Left axis deviation Inferior infarct , age undetermined prwp Electronically Signed on 09-24-2020 20:29:59 EDT by Valarie Bowles
== END 2020-09-23 20:51 | disposition short-term general hospital (02) ==
LOC: M ED 17:02
DX: I21.4 Non-ST elevation (NSTEMI) myocardial infarction (principal); I25.2 Old myocardial infarction; I10 Essential (primary) hypertension; E78.5 Hyperlipidemia, unspecified; Z79.82 Long term (current) use of aspirin; Z79.899 Other long term (current) drug therapy; Z79.84 Long term (current) use of oral hypoglycemic drugs
CPT/HCPCS: 71045; 80047; 80048; 80076; 84484; 85025; 85610; 85730; 87631; 93005; 93041; 94760; 96365; 96366; 96375; 99285; J1644

== ENCOUNTER → 2020-10-08 | Outpatient (CLI) | payer MEDICARE ==
[2020-10-08 15:01] LABS: HEMATOCRIT 47.4 % (42.0-52.0); HEMOGLOBIN 15.4 g/dl (13.5-17.5); MEAN CORPUSCULAR HEMOGLOBIN 30.8 pg (27.0-33.0); MEAN CORPUSCULAR HGB CONC 32.5 g/dl (32.0-36.5); MEAN CORPUSCULAR VOLUME 94.8 fl (80.0-96.0); PLATELET COUNT, AUTOMATED 250 10^3/uL (150-450); WHITE BLOOD COUNT 11.5 10^3/uL (4.0-10.0)
[2020-10-08 15:28] LABS: ALBUMIN 3.7 GM/DL (3.2-5.2); BILIRUBIN,TOTAL 0.8 MG/DL (0.2-1.0); CALCIUM LEVEL 9.8 MG/DL (8.8-10.2); CHOLESTEROL RISK RATIO 3.534 (<5); CREATININE FOR GFR 1.49 MG/DL (0.70-1.30); GLOMERULAR FILTRATION RATE 49.8 (>49); POTASSIUM SERUM 4.6 MEQ/L (3.5-5.1); TOTAL PROTEIN 6.6 GM/DL (6.4-8.2)
== END ==
LOC: M LAB 14:22
PROVIDERS: ATTEND Physician Assistant
DX: I25.10 Atherosclerotic heart disease of native coronary artery without angina pectoris (principal)

== ENCOUNTER → 2020-11-06 | Outpatient (CLI) | payer MEDICARE ==
[2020-11-06 13:09] LABS: ALBUMIN 3.8 GM/DL (3.2-5.2); ALT/SGPT 35 U/L (12-78); BILIRUBIN,TOTAL 0.8 MG/DL (0.2-1.0); BLOOD UREA NITROGEN 26 MG/DL (7-18); CALCIUM LEVEL 10.1 MG/DL (8.8-10.2); CARBON DIOXIDE LEVEL 25 MEQ/L (21-32); CHLORIDE LEVEL 108 MEQ/L (98-107); CREATININE FOR GFR 1.27 MG/DL (0.70-1.30); GLOMERULAR FILTRATION RATE 59.9 (>49); GLUCOSE, FASTING 85 MG/DL (70-100); MAGNESIUM LEVEL 2.2 MG/DL (1.8-2.4); POTASSIUM SERUM 4.7 MEQ/L (3.5-5.1); SODIUM LEVEL 140 MEQ/L (136-145); TOTAL PROTEIN 6.5 GM/DL (6.4-8.2); TROPONIN I < 0.02 NG/ML (< 0.10)
--- NOTE | 2020-11-06 13:40 | REP ---
INDICATION: PALPITATIONS-LAB FIRST. COMPARISON: Comparison chest x-ray September 23, 2020. TECHNIQUE: Two views.. FINDINGS: The lungs are well inflated and free of infiltrate. The pleural angles are sharp. The heart size is normal. Pulmonary vasculature is not increased. No significant bony abnormality is seen. There are some degenerative changes in the thoracic spine. IMPRESSION: No active disease. <Electronically signed by Thomas Banerjee > 11/06/20 [id number]
== END ==
LOC: M LAB 11:45
PROVIDERS: ATTEND Physician Assistant
DX: R00.2 Palpitations (principal); I25.10 Atherosclerotic heart disease of native coronary artery without angina pectoris

== ENCOUNTER → 2021-01-04 | Outpatient (REF) | payer MEDICARE | LOC: M LAB REF 11:29 | PROVIDERS: ATTEND Family Medicine | DX: D50.9 Iron deficiency anemia, unspecified (principal) ==

== ENCOUNTER → 2021-05-15 | Outpatient (CLI) | payer MEDICARE | LOC: M RAD 10:36 | PROVIDERS: ATTEND Specialist | DX: N20.0 Calculus of kidney (principal) ==

== ENCOUNTER → 2021-10-08 | Outpatient (CLI) | payer MEDICARE ==
[2021-10-08 15:09] LABS: BASO # 0.1 10^3/uL (0.0-0.2); BASO % 0.5 % (0.0-1.0); EOS # 0.1 10^3/uL (0.0-0.5); EOS % 0.7 % (0.0-3.0); HEMATOCRIT 51.2 % (42.0-52.0); HEMOGLOBIN 16.4 g/dl (13.5-17.5); LYMPH # 1.1 10^3/uL (1.5-5.0); LYMPH % 10.4 % (24.0-44.0); MEAN CORPUSCULAR HEMOGLOBIN 29.6 pg (27.0-33.0); MEAN CORPUSCULAR VOLUME 92.4 fl (80.0-96.0); MONO # 1.1 10^3/uL (0.0-0.8); MONO % 10.6 % (2.0-8.0); NEUTROPHILS # 7.9 10^3/uL (1.5-8.5); NEUTROPHILS % 75.4 % (36.0-66.0); PLATELET COUNT, AUTOMATED 205 10^3/uL (150-450); RED BLOOD COUNT 5.54 10^6/uL (4.30-6.10); WHITE BLOOD COUNT 10.5 10^3/uL (4.0-10.0)
[2021-10-08 15:56] LABS: ALBUMIN 3.5 GM/DL (3.2-5.2); ALT/SGPT 34 U/L (12-78); BILIRUBIN,TOTAL 0.7 MG/DL (0.2-1.0); BLOOD UREA NITROGEN 19 MG/DL (7-18); CALCIUM LEVEL 9.4 MG/DL (8.8-10.2); CARBON DIOXIDE LEVEL 25 MEQ/L (21-32); CHLORIDE LEVEL 111 MEQ/L (98-107); CREATININE FOR GFR 1.46 MG/DL (0.70-1.30); GLOMERULAR FILTRATION RATE 50.8 (>42); GLUCOSE, FASTING 91 MG/DL (70-100); POTASSIUM SERUM 4.1 MEQ/L (3.5-5.1); RHEUMATOID FACTOR QUANT < 10.0 IU/ML (<15.0); SODIUM LEVEL 143 MEQ/L (136-145); TOTAL PROTEIN 6.3 GM/DL (6.4-8.2)
[2021-10-08 19:04] LABS: ERYTHROCYTE SEDIMENTATION RATE 2 mm/hr (0-20)
[2021-10-14 15:07] LABS: ANTINUCLEAR ANTIBODIES DIRECT Negative (Negative); CERULOPLASMIN 16.3 mg/dL (16.0-31.0); COPPER PLASMA 72 ug/dL (69-132); LEAD BLOOD ADULT 2 ug/dL (0-4)
== END ==
LOC: M WUC 13:37
PROVIDERS: ATTEND Psychiatry & Neurology Neurology
DX: R25.1 Tremor, unspecified (principal)

== ENCOUNTER → 2021-10-16 | Outpatient (CLI) | payer MEDICARE | LOC: M LAB 10:42 | PROVIDERS: ATTEND Psychiatry & Neurology Neurology | DX: R25.1 Tremor, unspecified (principal) ==

== ENCOUNTER → 2021-12-17 | Outpatient (REF) | payer MEDICARE | LOC: M LAB REF 11:34 | PROVIDERS: ATTEND Family Medicine | DX: D50.9 Iron deficiency anemia, unspecified (principal) ==

== ENCOUNTER → 2022-05-26 | Outpatient (CLI) | payer MEDICARE | LOC: M PLAIMG 10:54 | PROVIDERS: ATTEND Specialist | DX: N20.0 Calculus of kidney (principal) ==

== ENCOUNTER 2022-07-29 22:25 | Emergency (ER) | payer MEDICARE ==
[~2022-07-29] VITALS: Ht 175.3 cm; Wt 90.0 kg
[2022-07-29 23:16] LABS: BASO % 0.5 % (0.0-1.0); EOS % 0.5 % (0.0-3.0); HEMATOCRIT 48.5 % (42.0-52.0); HEMOGLOBIN 15.8 g/dl (13.5-17.5); LYMPH # 1.1 10^3/uL (1.5-5.0); LYMPH % 12.6 % (24.0-44.0); MEAN CORPUSCULAR HGB CONC 32.6 g/dl (32.0-36.5); MEAN CORPUSCULAR VOLUME 92.2 fl (80.0-96.0); MONO # 1.2 10^3/uL (0.0-0.8); MONO % 13.3 % (2.0-8.0); NEUTROPHILS # 6.3 10^3/uL (1.5-8.5); NEUTROPHILS % 71.4 % (36.0-66.0); PLATELET COUNT, AUTOMATED 204 10^3/uL (150-450); RED BLOOD COUNT 5.26 10^6/uL (4.30-6.10); WHITE BLOOD COUNT 8.9 10^3/uL (4.0-10.0)
[2022-07-29 23:28] LABS: INR 0.83; PROTHROMBIN TIME 11.6 SECONDS (12.5-14.5)
[2022-07-29 23:33] LABS: CK-MB VALUE MASS < 1.0 NG/ML (<3.6)
[2022-07-29 23:35] LABS: ALBUMIN 3.6 G/DL (3.2-5.2); ALKALINE PHOSPHATASE 66 U/L (46-116); ALT/SGPT 28 U/L (7.0-40); AST/SGOT 22 U/L (<34); BILIRUBIN,DIRECT 0.2 MG/DL (<0.4); BILIRUBIN,TOTAL 0.5 MG/DL (0.3-1.2); BLOOD UREA NITROGEN 25 MG/DL (9-23); CALCIUM LEVEL 9.5 MG/DL (8.3-10.6); CARBON DIOXIDE LEVEL 23 MMOL/L (20-31); CHLORIDE LEVEL 108 MMOL/L (98-107); CPK CREATINE PHOSPHOKINASE 116 U/L (46-171); CREATININE FOR GFR 1.29 MG/DL (0.70-1.30); GLOMERULAR FILTRATION RATE 58.5 (>42); GLUCOSE, FASTING 141 MG/DL (74-106); MB/CK RELATIVE INDEX 0.86 (< OR =4); POTASSIUM SERUM 4.2 MMOL/L (3.5-5.1); SODIUM LEVEL 141 MMOL/L (136-145); TOTAL PROTEIN 5.9 G/DL (5.7-8.2)
[2022-07-30] MEDS ORDERED: MORPHINE 2 MG/ML 1ML VIAL IV ONE (00:35)
[2022-07-30 00:48] LABS: CK-MB VALUE MASS 1.4 NG/ML (<3.6)
[2022-07-30 00:49] LABS: MB/CK RELATIVE INDEX 1.27 (< OR =4)
[2022-07-30 02:32] LABS: CK-MB VALUE MASS 2.6 NG/ML (<3.6)
[2022-07-30 02:34] LABS: MB/CK RELATIVE INDEX 2.11 (< OR =4)
[2022-07-30] MEDS ORDERED: HEPARIN DRIP 25,000 UNITS in IV 1 EA IV SCH (03:10)
[2022-07-30 06:22] VITALS: BP 141/87
== END 2022-07-30 06:30 | disposition short-term general hospital (02) ==
LOC: M ED 22:25
DX: I21.4 Non-ST elevation (NSTEMI) myocardial infarction (principal); I44.4 Left anterior fascicular block; I25.2 Old myocardial infarction; E11.9 Type 2 diabetes mellitus without complications; I10 Essential (primary) hypertension; E78.5 Hyperlipidemia, unspecified; E03.9 Hypothyroidism, unspecified; Z86.79 Personal history of other diseases of the circulatory system; Z79.82 Long term (current) use of aspirin; Z79.811 Long term (current) use of aromatase inhibitors; Z79.4 Long term (current) use of insulin; Z79.899 Other long term (current) drug therapy

== ENCOUNTER → 2022-10-10 | Outpatient (CLI) | payer MEDICARE ==
[2022-10-10 10:13] LABS: HEMATOCRIT 48.4 % (42.0-52.0); HEMOGLOBIN 15.4 g/dl (13.5-17.5); MEAN CORPUSCULAR HEMOGLOBIN 30.7 pg (27.0-33.0); MEAN CORPUSCULAR HGB CONC 31.8 g/dl (32.0-36.5); MEAN CORPUSCULAR VOLUME 96.4 fl (80.0-96.0); PLATELET COUNT, AUTOMATED 198 10^3/uL (150-450); RED BLOOD COUNT 5.02 10^6/uL (4.30-6.10); WHITE BLOOD COUNT 9.8 10^3/uL (4.0-10.0)
[2022-10-10 10:41] LABS: ALBUMIN 3.8 G/DL (3.2-5.2); ALKALINE PHOSPHATASE 64 U/L (46-116); ALT/SGPT 34 U/L (7.0-40); AST/SGOT 17 U/L (<34); BLOOD UREA NITROGEN 17 MG/DL (9-23); CALCIUM LEVEL 9.8 MG/DL (8.3-10.6); CARBON DIOXIDE LEVEL 27 MMOL/L (20-31); CHLORIDE LEVEL 107 MMOL/L (98-107); CHOLESTEROL LEVEL 147 MG/DL (<200); CHOLESTEROL RISK RATIO 2.88 (<5); CREATININE FOR GFR 1.12 MG/DL (0.70-1.30); GLOMERULAR FILTRATION RATE > 60.0 (>42); GLUCOSE, FASTING 110 MG/DL (74-106); LDL CHOLESTEROL 60.2 MG/DL (<100); POTASSIUM SERUM 4.4 MMOL/L (3.5-5.1); SODIUM LEVEL 142 MMOL/L (136-145); TOTAL PROTEIN 6.3 G/DL (5.7-8.2); TRIGLYCERIDES LEVEL 179 MG/DL (<150)
== END ==
LOC: M WUC 08:36
PROVIDERS: ATTEND Physician Assistant
DX: I25.118 Atherosclerotic heart disease of native coronary artery with other forms of angina pectoris (principal); I11.9 Hypertensive heart disease without heart failure; E78.2 Mixed hyperlipidemia

== ENCOUNTER → 2023-11-10 | Outpatient (CLI) | payer MEDICARE | LOC: M PLAIMG 08:24 | PROVIDERS: ATTEND Physician Assistant | DX: I35.1 Nonrheumatic aortic (valve) insufficiency (principal); I27.20 Pulmonary hypertension, unspecified ==

== ENCOUNTER → 2023-11-27 | Outpatient (CLI) | payer MEDICARE | LOC: M WHC 11:10 | PROVIDERS: ATTEND Nurse Practitioner Family | DX: R22.31 Localized swelling, mass and lump, right upper limb (principal); M85.631 Other cyst of bone, right forearm ==

== ENCOUNTER 2024-04-02 18:43 | Emergency (ER) | payer MEDICARE ==
[2024-04-02 20:06] LABS: BASO # 0.1 10^3/uL (0.0-0.2); BASO % 0.6 % (0.0-1.0); EOS # 0.1 10^3/uL (0.0-0.5); EOS % 0.8 % (0.0-3.0); HEMATOCRIT 47.2 % (42.0-52.0); HEMOGLOBIN 15.4 g/dl (13.5-17.5); LYMPH # 1.2 10^3/uL (1.5-5.0); LYMPH % 13.4 % (24.0-44.0); MEAN CORPUSCULAR HEMOGLOBIN 30.6 pg (27.0-33.0); MEAN CORPUSCULAR HGB CONC 32.6 g/dl (32.0-36.5); MEAN CORPUSCULAR VOLUME 93.7 fl (80.0-96.0); MONO # 1.2 10^3/uL (0.0-0.8); NEUTROPHILS # 6.3 10^3/uL (1.5-8.5); PLATELET COUNT, AUTOMATED 213 10^3/uL (150-450); RED BLOOD COUNT 5.04 10^6/uL (4.30-6.10)
[2024-04-02 20:31] LABS: CK-MB VALUE MASS 1.3 NG/ML (<3.6)
[2024-04-02 20:33] LABS: ALBUMIN 3.6 G/DL (3.2-5.2); ALKALINE PHOSPHATASE 69 U/L (40-129); ALT/SGPT 54 U/L (7.0-40); AST/SGOT 24 U/L (<34); BILIRUBIN,DIRECT 0.2 MG/DL (<0.4); BILIRUBIN,TOTAL 0.8 MG/DL (0.3-1.2); BLOOD UREA NITROGEN 19 MG/DL (9-23); CALCIUM LEVEL 9.8 MG/DL (8.3-10.6); CARBON DIOXIDE LEVEL 25 MMOL/L (20-31); CHLORIDE LEVEL 109 MMOL/L (98-107); CPK CREATINE PHOSPHOKINASE 87 U/L (46-171); CREATININE FOR GFR 1.18 MG/DL (0.70-1.30); GLOMERULAR FILTRATION RATE > 60.0 (>42); GLUCOSE, FASTING 124 MG/DL (74-106); MB/CK RELATIVE INDEX 1.49 (< OR =4); POTASSIUM SERUM 4.6 MMOL/L (3.5-5.1); SODIUM LEVEL 144 MMOL/L (136-145); TOTAL PROTEIN 6.5 G/DL (5.7-8.2)
[2024-04-02] MEDS ORDERED: ISOVUE-370 76% 100ML VIAL As Ordered ONE (20:44)
[2024-04-02 22:13] LABS: MB/CK RELATIVE INDEX 1.21 (< OR =4)
[2024-04-02 23:00] VITALS: BP 162/82; TEMP 97; O2SAT 96
== END 2024-04-03 00:09 | disposition home or self-care (01) ==
LOC: EDBD 18:43 → M ED 18:43
DX: U07.1 COVID-19 (principal); I10 Essential (primary) hypertension; I25.2 Old myocardial infarction; E11.9 Type 2 diabetes mellitus without complications; E78.5 Hyperlipidemia, unspecified; E03.9 Hypothyroidism, unspecified; Z87.442 Personal history of urinary calculi; Z79.82 Long term (current) use of aspirin; Z79.02 Long term (current) use of antithrombotics/antiplatelets; Z79.4 Long term (current) use of insulin; Z79.899 Other long term (current) drug therapy
CPT/HCPCS: 36415; 71045; 71275; 80048; 80076; 82550; 82553; 83605; 83880; 84443; 84484; 85025; 87486; 87581; 87633; 87798; 93005; 93041; 94760; 99285; Q9967

== ENCOUNTER → 2024-07-12 | Outpatient (CLI) | payer MEDICARE ==
[~2024-07-12] MED LIST changes: -FLOM0.4C39 PO; +TAMS-18 PO
== END ==
LOC: M SLEEP HO 10:30
PROVIDERS: ATTEND Physician Assistant
DX: G47.9 Sleep disorder, unspecified (principal)

== ENCOUNTER → 2024-09-17 | Outpatient (CLI) | payer MEDICARE | LOC: M SLEEP 20:00 | PROVIDERS: ATTEND Physician Assistant | DX: G47.33 Obstructive sleep apnea (adult) (pediatric) (principal); I25.10 Atherosclerotic heart disease of native coronary artery without angina pectoris; I25.2 Old myocardial infarction; G47.31 Primary central sleep apnea ==

== ENCOUNTER → 2024-11-02 | Outpatient (CLI) | payer MEDICARE ==
[~2024-11-02] MED LIST changes: -EZET10TA21 PO; +EZET10TA57 PO
== END ==
LOC: M EKG 10:00
PROVIDERS: ATTEND Family Medicine
DX: R42 Dizziness and giddiness (principal)

== ENCOUNTER → 2024-11-06 | Outpatient (CLI) | payer MEDICARE | LOC: M SLEEP 20:00 | PROVIDERS: ATTEND Physician Assistant | DX: G47.33 Obstructive sleep apnea (adult) (pediatric) (principal) ==

== ENCOUNTER → 2024-11-08 | Outpatient (CLI) | payer MEDICARE ==
[~2024-11-08] MED LIST changes: +PROHANCE 279.3MG/ML 15ML VIAL As Ordered ONE; +PROHANCE 279.3MG/ML 5ML VIAL As Ordered ONE
== END ==
LOC: M RAD 12:56
PROVIDERS: ATTEND Family Medicine
DX: R42 Dizziness and giddiness (principal)
CPT/HCPCS: 70553; A9576